=== PATIENT | female | born 1990 | race Caucasian/White ===

== ENCOUNTER 2016-06-24 19:51 | Emergency (ER) | payer OTHER ==
[~2016-06-24 19:51] MED LIST: /ESOM40CA; /INSULEV; /LAMO10TA PO; /QUET25TA; ABIL10TA PO; ABIL30TA4; AMBI5TAB PO; AMOX500C; BABY81CH; BACT800T; BUPR10TASR PO; BUSP30TA PO; CELE10TA; CELE20TA; CELE20TA OR; COLESTID; COLESTID PO; COLESTIPOL; ESKALITH; GABA600T PO; GLUC1000; GLUC1000 OR; GLUC500T; IBUP200C PO; INSULANT; KEFL500C; LAMI1TAB7 PO; LAMI25TA3 PO; LEXA1TAB2 PO; LISI5TAB; LISI5TAB OR; LITH300T2; LITH600C; LITH600C OR; LITHIUM; MELO15TA4 PO; MINI2CAP PO; NEUR300C PO; NOVOLOG100 MG/ML; ORTHO TRICYCLEN; ORTHOTRICYCLEN; PRAZ1CAP PO; PROA1AER INH; Prenatal Vitamins PO; SER; SERO200T2 PO; SEROQUEL PO; TIZA4CAP3 PO; TRAZ100T2 PO; TRAZ50TA2 PO; TRAZ50TA4 PO; TRISPRINTEC; TYLE325T5 PO; VITA200028 PO; ZOCO20TA; [UNRECOGNIZED DRUG - OTHER]; [UNRECOGNIZED DRUG - OTHER] PO; effexor xr PO; lantus insulin SQ; levemir; novolog insulin SQ
[2016-06-24] MEDS ORDERED: NORCO 5/325MG TABLET (BULK) As Ordered ONE (21:21)
--- NOTE | 2016-06-24 21:40 | EDDOCDS ---
Physician Documentation [facility] Name: Sade Thornton Age: 26 yrs Sex: Female : 1990 Arrival Date: 06/24/2016 Time: 19:51 Bed TR7 Private MD: Lenore Ramos Disposition: 06/24/16 21:10 Discharged to Home/Self Care. Impression: Dental caries. - Condition is Stable. - Discharge Instructions: Dental Pain. - Prescriptions for [place] 5- 325 mg Oral Tablet - take 1 tablet by ORAL route every 6 hours As needed MDD: 4 tabs; 20 tablet. - Medication Reconciliation, Local Pharmacy Hours form. - Follow up: Your, Dentist; When: As soon as possible; Reason: Further diagnostic work-up, Continuance of care. - Problem is an ongoing problem. - Symptoms are unchanged. Historical: - Allergies: no known allergies; - Home Meds: 1. BuSpar Oral 30 mg daily (Last dose: 06/24/2016 19:00) 2. Lamictal 100 mg Oral tab 1 tab once daily (Last dose: 06/24/2016 19:00) 3. Lexapro 20 mg Oral tab 1 tab once daily (Last dose: 06/24/2016 19:00) 4. Neurontin 600 mg Oral tab 3 times per day (Last dose: 06/24/2016 19:00) 5. Motrin 800 mg Oral tab 1 tab as needed (Last dose: 06/24/2016 19:00) - PMHx: Anxiety; Diabetes - NIDDM: controlled; GERD; Ovarian cyst; - PSHx: ; Cholecystectomy; Cyst removed from right ovary; - Social history: Smoking status: Patient uses tobacco products, current every day smoker. No barriers to communication noted, The patient speaks fluent Austrian, Speaks appropriately for age. - Family history: Not pertinent. - : The pt / caregiver states he / she is not on anticoagulants. Home medication list is obtained from the patient. - Exposure Risk Screening:: None identified. OCULAR CARE AIDE: 06/24 19:57 LMP 06/23/2016 dsf Vital Signs: 19:53 BP 161 / 72; Pulse 81; Resp 16; Temp 98.9; Pulse Ox 99% ; Weight 123.38 kg / 272.01 elp lbs; Height 5 ft. 3 in. (160.02 cm); Pain 8/; 19:53 Body Mass Index 48.18 (123.38 kg, 160.02 cm) elp MDM: 21:08 Financial registration complete. gb 21:10 [facility] Payment Agreement was scanned into [employer] and attached to record. gb 21:11 HYDROcodone-acetaminophen 4 pack- 5 mg-325 mg 1 packets PO Per package directions; ke Dispense with patient. 1 po q4h prn for pain ordered. Administered Medications: 21:35 Drug: HYDROcodone-acetaminophen 4 pack- 1 packets [hydrocodone 5 mg-acetaminophen 325 cz mg tablet (1 tabs)] {Co-Signature: ttb (Alba Whelan RN).} Route: PO; Signatures: Blake Altamirano, JOSE ELIAS RN cz Freda Ayala, Reg Reg John Schwarz, SPONSORSHIP COORDINATOR SPONSORSHIP COORDINATOR Kayleigh Jackson RN RN dsf Alba Whelan RN [email or web address] The chart was reviewed and I authenticate all verbal orders and agree with the evaluation and treatment provided.Attachments: 21:10 [facility] Payment Agreement gb MTDD
--- NOTE | 2016-06-24 21:40 | EDDOCDS ---
Nurse's Notes [facility] Name: Sade Thornton Age: 26 yrs Sex: Female : 1990 Arrival Date: 06/24/2016 Time: 19:51 Bed TR7 Private MD: Lenore Ramos Diagnosis: Dental caries Presentation: 06/24 19:54 Presenting complaint: Patient states: left jaw pain that started 1 1/2 weeks ago. Adult dsf Sepsis Screening: The patient does not have new or worsening altered mentation. Patient's respiratory rate is less than 22. Systolic blood pressure is greater than 100. Patient has a qSOFA score of 0- Negative Sepsis Screen. Suicide/Homicide risk assessment- the patient denies having any suicidal and/or homicidal ideations and does not present with any other emotional, behavioral or mental health complaints. Status: Patient is not a dining services manager or dependent. Transition of care: patient was not received from another setting of care. 19:54 Acuity: SIGIFREDO Level 5 dsf 19:54 Method Of Arrival: Walkin/Carried/Asstd dsf Triage Assessment: 19:57 General: Appears in no apparent distress, Behavior is appropriate for age, cooperative. dsf Pain: Location: left jaw Pain currently is 8 out of 10 on a pain scale. Quality of pain is described as throbbing. HIV screening NA for this visit Offered previously. EENT: Reports pain in left jaw. POLICE DISPATCHER: 19:57 LMP 06/23/2016 dsf Historical: - Allergies: no known allergies; - Home Meds: 1. BuSpar Oral 30 mg daily (Last dose: 06/24/2016 19:00) 2. Lamictal 100 mg Oral tab 1 tab once daily (Last dose: 06/24/2016 19:00) 3. Lexapro 20 mg Oral tab 1 tab once daily (Last dose: 06/24/2016 19:00) 4. Neurontin 600 mg Oral tab 3 times per day (Last dose: 06/24/2016 19:00) 5. Motrin 800 mg Oral tab 1 tab as needed (Last dose: 06/24/2016 19:00) - PMHx: Anxiety; Diabetes - NIDDM: controlled; GERD; Ovarian cyst; - PSHx: ; Cholecystectomy; Cyst removed from right ovary; - Social history: Smoking status: Patient uses tobacco products, current every day smoker. No barriers to communication noted, The patient speaks fluent German, Speaks appropriately for age. - Family history: Not pertinent. - : The pt / caregiver states he / she is not on anticoagulants. Home medication list is obtained from the patient. - Exposure Risk Screening:: None identified. Screenin:26 Screening information is obtained from the patient. Fall risk: No risks identified. cz Assistance ADL's: requires no assistance with activities of daily living. Abuse/DV Screen: The patient / caregiver reports he/she is: not in a situation that causes fear, pain or injury. Nutritional screening: No deficits noted. Advance Directives: Currently, there is no health care proxy. There is no active DNR order. There is no living will. There is no Power of Hat Body Sorter. Advance directive information has not previously been placed in an [facility] medical record. home support is adequate. Assessment: 21:26 General: alert female with stated dental pain no obvious swelling noted. Vital Signs: 19:53 BP 161 / 72; Pulse 81; Resp 16; Temp 98.9; Pulse Ox 99% ; Weight 123.38 kg; Height 5 elp ft. 3 in. (160.02 cm); Pain 8/10; 19:53 Body Mass Index 48.18 (123.38 kg, 160.02 cm) [facility] Vitals: 19:53 Log In Time: June 24, 2016 at 19:51. [facility] ED Course: 19:52 Patient visited by Adurey Rm PCA. elp 19:52 Lenore Ramos is Private Physician. elp 19:52 Patient moved to Waiting el 19:53 Patient visited by Audrey Rm PCA. elp 19:53 Patient moved to Pre RCE elp 19:55 Triage Initiated dsf 20:56 [facility]. ke 20:56 Patient visited by John Hamm FNP. ke 20:56 Patient visited by John Hamm FNP. ke 20:56 Patient moved to I1 23 [facility] 21:10 Your Dentist is Referral Physician. ke 21:10 [facility] Payment Agreement was scanned into [employer] and attached to record. gb 21:26 The patient / caregiver is instructed regarding the plan of care and ED course. cz 21:26 No IV's were initiated during this patient's visit. No procedures done that require cz assistance. 21:34 Patient moved to TR7 cz Administered Medications: 21:35 Drug: HYDROcodone-acetaminophen 4 pack- 1 packets [hydrocodone 5 mg-acetaminophen 325 cz mg tablet (1 tabs)] {Co-Signature: marko (Alba Whelan RN).} Route: PO; Order Results: There are currently no results for this order. Outcome: 21:10 Discharge ordered by Provider. ke 21:26 Discharge Assessment: Patient awake, alert and oriented x 3. No cognitive and/or cz functional deficits noted. Patient verbalized understanding of disposition instructions. patient administered narcotics - no. The following High Risk Discharge criteria are identified: None. Discharged to home ambulatory. Condition: stable. Discharge instructions given to patient, Instructed on discharge instructions, follow up and referral plans. medication usage, Demonstrated understanding of instructions, medications, Pt was receptive of discharge instructions/ teaching. Prescriptions given X 1. No special radiology studies were completed. Property :Personal belongings accompany Pt. 21:39 Patient left the ED. cz Signatures: Blake Altamirano, RN RN cz Freda Ayala, Reg Reg gb John Hamm, ROAD SIGN INSTALLER ROAD SIGN INSTALLER Kayleigh JacksonRN RN Linda NegronRN RN howard Audrey Rm, GRIP WRAPPER GRIP WRAPPER elp Alba zhu MTDD
--- NOTE | 2016-06-26 22:40 | EDDOCDS ---
Nurse's Notes [facility] Name: Sade Thornton Age: 26 yrs Sex: Female : 1990 Arrival Date: 06/24/2016 Time: 19:51 Bed TR7 Private MD: Lenore Ramos Diagnosis: Dental caries Presentation: 06/24 19:54 Presenting complaint: Patient states: left jaw pain that started 1 1/2 weeks ago. Adult dsf Sepsis Screening: The patient does not have new or worsening altered mentation. Patient's respiratory rate is less than 22. Systolic blood pressure is greater than 100. Patient has a qSOFA score of 0- Negative Sepsis Screen. Suicide/Homicide risk assessment- the patient denies having any suicidal and/or homicidal ideations and does not present with any other emotional, behavioral or mental health complaints. Status: Patient is not a office services coordinator or dependent. Transition of care: patient was not received from another setting of care. 19:54 Acuity: SIGIFREDO Level 5 dsf 19:54 Method Of Arrival: Walkin/Carried/Asstd dsf Triage Assessment: 19:57 General: Appears in no apparent distress, Behavior is appropriate for age, cooperative. dsf Pain: Location: left jaw Pain currently is 8 out of 10 on a pain scale. Quality of pain is described as throbbing. HIV screening NA for this visit Offered previously. EENT: Reports pain in left jaw. BARREL MAKER: 19:57 LMP 06/23/2016 dsf Historical: - Allergies: no known allergies; - Home Meds: 1. BuSpar Oral 30 mg daily (Last dose: 06/24/2016 19:00) 2. Lamictal 100 mg Oral tab 1 tab once daily (Last dose: 06/24/2016 19:00) 3. Lexapro 20 mg Oral tab 1 tab once daily (Last dose: 06/24/2016 19:00) 4. Neurontin 600 mg Oral tab 3 times per day (Last dose: 06/24/2016 19:00) 5. Motrin 800 mg Oral tab 1 tab as needed (Last dose: 06/24/2016 19:00) - PMHx: Anxiety; Diabetes - NIDDM: controlled; GERD; Ovarian cyst; - PSHx: ; Cholecystectomy; Cyst removed from right ovary; - Social history: Smoking status: Patient uses tobacco products, current every day smoker. No barriers to communication noted, The patient speaks fluent Kiswahili, Speaks appropriately for age. - Family history: Not pertinent. - : The pt / caregiver states he / she is not on anticoagulants. Home medication list is obtained from the patient. - Exposure Risk Screening:: None identified. Screenin:26 Screening information is obtained from the patient. Fall risk: No risks identified. cz Assistance ADL's: requires no assistance with activities of daily living. Abuse/DV Screen: The patient / caregiver reports he/she is: not in a situation that causes fear, pain or injury. Nutritional screening: No deficits noted. Advance Directives: Currently, there is no health care proxy. There is no active DNR order. There is no living will. There is no Power of Nanotechnician. Advance directive information has not previously been placed in an [facility] medical record. home support is adequate. Assessment: 21:26 General: alert female with stated dental pain no obvious swelling noted. Vital Signs: 19:53 BP 161 / 72; Pulse 81; Resp 16; Temp 98.9; Pulse Ox 99% ; Weight 123.38 kg; Height 5 elp ft. 3 in. (160.02 cm); Pain 8/10; 19:53 Body Mass Index 48.18 (123.38 kg, 160.02 cm) [facility] Vitals: 19:53 Log In Time: June 24, 2016 at 19:51. [facility] ED Course: 19:52 Patient visited by Audrey Rm PCA. elp 19:52 Lenore Ramos is Private Physician. elp 19:52 Patient moved to Waiting el 19:53 Patient visited by Audrey Rm PCA. elp 19:53 Patient moved to Pre RCE elp 19:55 Triage Initiated dsf 20:56 [facility]. ke 20:56 Patient visited by John Hamm FNP. ke 20:56 Patient visited by John Hamm FNP. ke 20:56 Patient moved to I1 [address] [facility] 21:10 Your Dentist is Referral Physician. ke 21:10 [facility] Payment Agreement was scanned into [email or web address] and attached to record. gb 21:26 The patient / caregiver is instructed regarding the plan of care and ED course. cz 21:26 No IV's were initiated during this patient's visit. No procedures done that require cz assistance. 21:34 Patient moved to TR7 06/25 12:20 T-Sheet-- Draft Copy was scanned into [email or web address] and attached to record. gb Administered Medications: 06/24 21:35 Drug: HYDROcodone-acetaminophen 4 pack- 1 packets [hydrocodone 5 mg-acetaminophen 325 cz mg tablet (1 tabs)] {Co-Signature: ttb (Alba Whelan RN).} Route: PO; Order Results: There are currently no results for this order. Outcome: 21:10 Discharge ordered by Provider. ke 21:26 Discharge Assessment: Patient awake, alert and oriented x 3. No cognitive and/or cz functional deficits noted. Patient verbalized understanding of disposition instructions. patient administered narcotics - no. The following High Risk Discharge criteria are identified: None. Discharged to home ambulatory. Condition: stable. Discharge instructions given to patient, Instructed on discharge instructions, follow up and referral plans. medication usage, Demonstrated understanding of instructions, medications, Pt was receptive of discharge instructions/ teaching. Prescriptions given X 1. No special radiology studies were completed. Property :Personal belongings accompany Pt. 21:39 Patient left the ED. cz Signatures: Blake Altamirano, RN RN Freda Funes, Reg Reg John Schwarz, STILL PHOTOGRAPHER STILL PHOTOGRAPHERKaylegih Escalona,RN RN Linda NegronRN RN [facility] Audrey Rm, SEAMAN OFFICER SEAMAN OFFICER elp Alba Whelan RN ttb Chart Complete MTDD
--- NOTE | 2016-06-26 22:40 | EDDOCDS ---
Physician Documentation [facility] Name: Sade Thornton Age: 26 yrs Sex: Female : 1990 Arrival Date: 06/24/2016 Time: 19:51 Bed TR7 Private MD: Lenore Ramos Disposition: 06/24/16 21:10 Discharged to Home/Self Care. Impression: Dental caries. - Condition is Stable. - Discharge Instructions: Dental Pain. - Prescriptions for [place] 5- 325 mg Oral Tablet - take 1 tablet by ORAL route every 6 hours As needed MDD: 4 tabs; 20 tablet. - Medication Reconciliation, Local Pharmacy Hours form. - Follow up: Your, Dentist; When: As soon as possible; Reason: Further diagnostic work-up, Continuance of care. - Problem is an ongoing problem. - Symptoms are unchanged. Historical: - Allergies: no known allergies; - Home Meds: 1. BuSpar Oral 30 mg daily (Last dose: 06/24/2016 19:00) 2. Lamictal 100 mg Oral tab 1 tab once daily (Last dose: 06/24/2016 19:00) 3. Lexapro 20 mg Oral tab 1 tab once daily (Last dose: 06/24/2016 19:00) 4. Neurontin 600 mg Oral tab 3 times per day (Last dose: 06/24/2016 19:00) 5. Motrin 800 mg Oral tab 1 tab as needed (Last dose: 06/24/2016 19:00) - PMHx: Anxiety; Diabetes - NIDDM: controlled; GERD; Ovarian cyst; - PSHx: ; Cholecystectomy; Cyst removed from right ovary; - Social history: Smoking status: Patient uses tobacco products, current every day smoker. No barriers to communication noted, The patient speaks fluent Surinamese, Speaks appropriately for age. - Family history: Not pertinent. - : The pt / caregiver states he / she is not on anticoagulants. Home medication list is obtained from the patient. - Exposure Risk Screening:: None identified. POLICYHOLDER INFORMATION CLERK: 06/24 19:57 LMP 06/23/2016 dsf Vital Signs: 19:53 BP 161 / 72; Pulse 81; Resp 16; Temp 98.9; Pulse Ox 99% ; Weight 123.38 kg / 272.01 elp lbs; Height 5 ft. 3 in. (160.02 cm); Pain 8/; 19:53 Body Mass Index 48.18 (123.38 kg, 160.02 cm) elp MDM: 21:08 Financial registration complete. 21:10 [facility] Payment Agreement was scanned into [employer] and attached to record. gb 21:11 HYDROcodone-acetaminophen 4 pack- 5 mg-325 mg 1 packets PO Per package directions; ke Dispense with patient. 1 po q4h prn for pain ordered. 06/25 12:20 T-Sheet-- Draft Copy was scanned into [employer] and attached to record. gb Administered Medications: 06/24 21:35 Drug: HYDROcodone-acetaminophen 4 pack- 1 packets [hydrocodone 5 mg-acetaminophen 325 cz mg tablet (1 tabs)] {Co-Signature: ttb (Alba Whelan RN).} Route: PO; Signatures: Blake Altamirano, JOSE ELIAS RN rFeda Funes, Reg Reg gb John Hamm, STRETCH MACHINE OPERATOR STRETCH MACHINE OPERATOR Kayleigh Jackson RN RN dsf Alba Whelan RN [email or web address] The chart was reviewed and I authenticate all verbal orders and agree with the evaluation and treatment provided.Attachments: 21:10 [facility] Payment Agreement gb 06/25 12:20 T-Sheet-- Draft Copy gb Chart Complete MTDD
--- NOTE | 2016-06-26 22:40 | EDDOCDS ---
Physician Documentation [facility] Name: Sade Thornton Age: 26 yrs Sex: Female : 1990 Arrival Date: 06/24/2016 Time: 19:51 Bed TR7 Private MD: Lenore Ramos Disposition: 06/24/16 21:10 Discharged to Home/Self Care. Impression: Dental caries. - Condition is Stable. - Discharge Instructions: Dental Pain. - Prescriptions for [place] 5- 325 mg Oral Tablet - take 1 tablet by ORAL route every 6 hours As needed MDD: 4 tabs; 20 tablet. - Medication Reconciliation, Local Pharmacy Hours form. - Follow up: Your, Dentist; When: As soon as possible; Reason: Further diagnostic work-up, Continuance of care. - Problem is an ongoing problem. - Symptoms are unchanged. Historical: - Allergies: no known allergies; - Home Meds: 1. BuSpar Oral 30 mg daily (Last dose: 06/24/2016 19:00) 2. Lamictal 100 mg Oral tab 1 tab once daily (Last dose: 06/24/2016 19:00) 3. Lexapro 20 mg Oral tab 1 tab once daily (Last dose: 06/24/2016 19:00) 4. Neurontin 600 mg Oral tab 3 times per day (Last dose: 06/24/2016 19:00) 5. Motrin 800 mg Oral tab 1 tab as needed (Last dose: 06/24/2016 19:00) - PMHx: Anxiety; Diabetes - NIDDM: controlled; GERD; Ovarian cyst; - PSHx: ; Cholecystectomy; Cyst removed from right ovary; - Social history: Smoking status: Patient uses tobacco products, current every day smoker. No barriers to communication noted, The patient speaks fluent Gambian, Speaks appropriately for age. - Family history: Not pertinent. - : The pt / caregiver states he / she is not on anticoagulants. Home medication list is obtained from the patient. - Exposure Risk Screening:: None identified. EEG TECH: 06/24 19:57 LMP 06/23/2016 dsf Vital Signs: 19:53 BP 161 / 72; Pulse 81; Resp 16; Temp 98.9; Pulse Ox 99% ; Weight 123.38 kg / 272.01 elp lbs; Height 5 ft. 3 in. (160.02 cm); Pain 8/; 19:53 Body Mass Index 48.18 (123.38 kg, 160.02 cm) elp MDM: 21:08 Financial registration complete. 21:10 [facility] Payment Agreement was scanned into [employer] and attached to record. gb 21:11 HYDROcodone-acetaminophen 4 pack- 5 mg-325 mg 1 packets PO Per package directions; ke Dispense with patient. 1 po q4h prn for pain ordered. 06/25 12:20 T-Sheet-- Draft Copy was scanned into [employer] and attached to record. gb Administered Medications: 06/24 21:35 Drug: HYDROcodone-acetaminophen 4 pack- 1 packets [hydrocodone 5 mg-acetaminophen 325 cz mg tablet (1 tabs)] {Co-Signature: ttb (Alba Whelan RN).} Route: PO; Signatures: Blake Altamirano, JOSE ELIAS RN Freda Funes, Reg Reg gb John Hamm, SKIP MINER BLASTING SKIP MINER BLASTING Kayleigh Jackson RN RN dsf Alba Whelan RN [email or web address] The chart was reviewed and I authenticate all verbal orders and agree with the evaluation and treatment provided.Attachments: 21:10 [facility] Payment Agreement gb 06/25 12:20 T-Sheet-- Draft Copy gb Chart Complete MTDD
== END 2016-06-24 21:39 | disposition home or self-care (01) ==
LOC: M ED 19:51
DX: K02.9 Dental caries, unspecified (principal); F41.9 Anxiety disorder, unspecified; E11.9 Type 2 diabetes mellitus without complications; K21.9 Gastro-esophageal reflux disease without esophagitis; N83.209 Unspecified ovarian cyst, unspecified side; F17.210 Nicotine dependence, cigarettes, uncomplicated; Z79.899 Other long term (current) drug therapy; Z79.1 Long term (current) use of non-steroidal anti-inflammatories (NSAID)

== ENCOUNTER 2016-09-02 18:29 | Emergency (ER) | payer OTHER ==
[~2016-09-02] VITALS: Ht 160 cm; Wt 128.4 kg
[2016-09-02 18:29] VITALS: BP 129/71
[2016-09-02] MEDS ORDERED: VALA500T PO (18:39)
[2016-09-02] MEDS ORDERED: METF500T PO (18:39)
[2016-09-02] MEDS ORDERED: ONDANSETRON 4 MG ORAL DISINTEGRATING TAB (S0181) PO ONE (21:00)
[2016-09-02] MEDS ORDERED: BACTRIM 160MG/800MG DS TAB PO ONE (21:00)
[2016-09-02] MEDS ORDERED: BACT800T5 PO (21:01)
[2016-09-02] MEDS ORDERED: ZOFR4TAB3 PO (21:01)
== END 2016-09-02 21:17 | disposition home or self-care (01) ==
LOC: M ED 20:17
DX: N30.90 Cystitis, unspecified without hematuria (principal); J45.909 Unspecified asthma, uncomplicated; Z87.440 Personal history of urinary (tract) infections; Z87.442 Personal history of urinary calculi; Z79.899 Other long term (current) drug therapy; F17.210 Nicotine dependence, cigarettes, uncomplicated

== ENCOUNTER 2016-09-06 19:38 | Emergency (ER) | payer OTHER ==
[~2016-09-06] VITALS: Ht 160 cm; Wt 128.4 kg
[~2016-09-06 19:38] MED LIST changes: +BACT800T5 PO; +METF500T PO; +VALA500T PO; +ZOFR4TAB3 PO
[2016-09-06] MEDS ORDERED: ONDANSETRON 4MG/2ML VIAL (J2405) IV ONE (20:30)
[2016-09-06] MEDS ORDERED: NS 1,000 ML IV ONE (20:30)
[2016-09-06] MEDS ORDERED: KETOROLAC 30 MG/ML VIAL (J1885) IV ONE (20:30)
[2016-09-06 20:52] LABS: BASO % 0.4 % (0.0-1.0); EOS # 0.5 K/mm3 (0.0-0.50); EOS % 5.7 % (0.0-3.0); LARGE UNSTAINED CELL # 0.1 K/mm3 (0.0-0.4); LARGE UNSTAINED CELL % 0.9 % (0.0-4.0); LYMPH # 2.8 K/mm3 (1.5-6.5); LYMPH % 29.3 % (24.0-44.0); MEAN CORPUSCULAR HEMOGLOBIN 29.3 pg (27.0-33.0); MEAN CORPUSCULAR HGB CONC 31.9 g/dl (32.0-36.5); MONO # 0.4 K/mm3 (0.0-0.8); MONO % 4.8 % (0.0-5.0); NEUTROPHILS # 5.4 K/mm3 (1.8-7.7); NEUTROPHILS % 58.9 % (36.0-66.0); PLATELET COUNT, AUTOMATED 203 k/mm3 (150-450); RED CELL DISTRIBUTION WIDTH 12.5 % (11.5-14.5); WHITE BLOOD COUNT 9.1 K/mm3 (4.0-10.0)
[2016-09-06 21:07] LABS: CONTROL LINE HCG INT CTR LINE PRESENT
[2016-09-06 21:20] LABS: ALBUMIN 3.4 GM/DL (3.2-5.2); ALBUMIN/GLOBULIN RATIO 0.97 (1.00-1.93); ALKALINE PHOSPHATASE 93 U/L (45-117); ALT/SGPT 41 U/L (12-78); ANION GAP 5 MEQ/L (8-16); AST/SGOT 14 U/L (15-37); BILIRUBIN,DIRECT < 0.1 MG/DL (0.0-0.2); BILIRUBIN,TOTAL 0.2 MG/DL (0.2-1.0); BLOOD UREA NITROGEN 14 MG/DL (7-18); CALCIUM LEVEL 8.3 MG/DL (8.5-10.1); CARBON DIOXIDE LEVEL 28 MEQ/L (21-32); CHLORIDE LEVEL 106 MEQ/L (98-107); CREATININE FOR GFR 0.83 MG/DL (0.55-1.02); GLOMERULAR FILTRATION RATE > 60.0 (>60); GLUCOSE, FASTING 120 MG/DL (70-105); POTASSIUM SERUM 4.2 MEQ/L (3.5-5.1); SODIUM LEVEL 139 MEQ/L (136-145); TOTAL PROTEIN 6.9 GM/DL (6.4-8.2)
[2016-09-06] MEDS ORDERED: MORPHINE 2 MG/ML 1ML SYRINGE IV ONE (22:15)
--- NOTE | 2016-09-06 22:40 | REPUSA ---
CLINICAL HISTORY: Abdominal pain. TECHNIQUE: Multiple axial, sagittal and coronal CT images were obtained through the abdomen and pelvi s without administration of oral or IV contrast material. COMMENTS: The liver is of uniform attenuation without mass or defect. There is no intra or extrahepatic biliary ductal dilatation. The spleen is normal. The gallbladder is surgically absent. The pancreas is of no rmal contour and attenuation characteristics. There is no evidence of adrenal mass. The kidneys are normal in size, shape and configuration. No renal or ureteral calculi are identified. There is no hydroureter or hydronephrosis. There is no evidence for appendicitis. There is no bowel wall thickening. No evidence for small or la rge bowel obstruction. There is no evidence of abdominal ascites or lymphadenopathy. There is no evidence of intrinsic or extrinsic bladder mass. There is no pelvic ascites or lymphadeno petey. The uterus is bulky suggesting myomatous change. The ovaries are WNL. Images of the lung bases show no evidence of pleural or parenchymal mass. There are no pleural effusi ons. The bony structures are free of lytic or blastic lesions. IMPRESSION: The uterus is bulky suggesting myomatous change. No acute abdominal or pelvic pathology. Thank you for your kind referral of this patient.
[2016-09-06] MEDS ORDERED: NAPR500T PO (23:14)
[2016-09-06 23:27] VITALS: BP 123/55
--- NOTE | 2016-09-07 17:33 | ED PDOC ---
Post-Departure Follow-Up bhumika tejada faxed formal report of ct abd/p for fu nelig Viki Mann MD Sep 07, 2016 17:33
== END 2016-09-06 23:31 | disposition home or self-care (01) ==
LOC: M ED 20:22
DX: D25.9 Leiomyoma of uterus, unspecified (principal); E11.9 Type 2 diabetes mellitus without complications; J45.909 Unspecified asthma, uncomplicated; F17.210 Nicotine dependence, cigarettes, uncomplicated; Z79.899 Other long term (current) drug therapy; Z79.84 Long term (current) use of oral hypoglycemic drugs
CPT/HCPCS: 74176; 80048; 80076; 81001; 83690; 84703; 85025; 87086; 96361; 96374; 96375; 99282; J1885; J2405

== ENCOUNTER 2016-10-27 22:29 | Emergency (ER) | payer OTHER ==
[~2016-10-27] VITALS: Ht 160 cm; Wt 124.7 kg
[2016-10-27 22:29] VITALS: BP 128/64
[~2016-10-27 22:29] MED LIST changes: +NAPR500T PO
[2016-10-27] MEDS ORDERED: CYMB1CAP4 PO (22:48)
[2016-10-27] MEDS ORDERED: NEUR600T PO (22:48)
[2016-10-27] MEDS ORDERED: MINI1CAP PO (22:48)
[2016-10-28 01:58] LABS: CALCIUM OXALATE CRYSTALS SMALL
[2016-10-28 02:02] LABS: CONTROL LINE UCG INT CTR LINE PRESENT
== END 2016-10-28 02:00 | disposition left against medical advice (07) ==
LOC: M ED 23:50
DX: R11.0 Nausea (principal); Z53.21 Procedure and treatment not carried out due to patient leaving prior to being seen by health care provider

== ENCOUNTER 2016-12-14 21:13 | Emergency (ER) | payer OTHER ==
[~2016-12-14] VITALS: Ht 160 cm; Wt 122.4 kg
[~2016-12-14 21:13] MED LIST changes: +CYMB1CAP4 PO; -IBUP200C PO; +IBUP200C10 PO; -METF500T PO; +METF500T13 PO; +MINI1CAP PO; +NEUR600T PO; -PROA1AER INH; +PROAAER10 INH; +TRAZ50TA11 PO; -TRAZ50TA4 PO; -VALA500T PO; +VALA500T2 PO
[2016-12-14] MEDS ORDERED: IBUP-1114 PO (21:28)
[2016-12-15 01:17] LABS: CALCIUM OXALATE CRYSTALS SMALL
[2016-12-15 01:27] LABS: BASO # 0.1 K/mm3 (0.0-0.2); BASO % 0.7 % (0.0-1.0); EOS # 0.3 K/mm3 (0.0-0.50); EOS % 3.7 % (0.0-3.0); LARGE UNSTAINED CELL # 0.1 K/mm3 (0.0-0.4); LARGE UNSTAINED CELL % 1.6 % (0.0-4.0); LYMPH # 2.8 K/mm3 (1.5-6.5); MEAN CORPUSCULAR HEMOGLOBIN 30.6 pg (27.0-33.0); MONO # 0.4 K/mm3 (0.0-0.8); MONO % 4.4 % (0.0-5.0); NEUTROPHILS # 4.7 K/mm3 (1.8-7.7); NEUTROPHILS % 56.6 % (36.0-66.0); PLATELET COUNT, AUTOMATED 239 k/mm3 (150-450); RED CELL DISTRIBUTION WIDTH 12.6 % (11.5-14.5); WHITE BLOOD COUNT 8.4 K/mm3 (4.0-10.0)
[2016-12-15 01:41] LABS: CONTROL LINE HCG INT CTR LINE PRESENT
[2016-12-15 01:51] LABS: ALBUMIN 3.7 GM/DL (3.2-5.2); ALBUMIN/GLOBULIN RATIO 0.93 (1.00-1.93); ALKALINE PHOSPHATASE 90 U/L (45-117); ALT/SGPT 39 U/L (12-78); ANION GAP 10 MEQ/L (8-16); AST/SGOT 15 U/L (15-37); BILIRUBIN,DIRECT 0.1 MG/DL (0.0-0.2); BILIRUBIN,TOTAL 0.5 MG/DL (0.2-1.0); BLOOD UREA NITROGEN 17 MG/DL (7-18); CALCIUM LEVEL 9.8 MG/DL (8.5-10.1); CARBON DIOXIDE LEVEL 25 MEQ/L (21-32); CHLORIDE LEVEL 108 MEQ/L (98-107); CREATININE FOR GFR 0.72 MG/DL (0.55-1.02); GLOMERULAR FILTRATION RATE > 60.0 (>60); GLUCOSE, FASTING 94 MG/DL (70-105); POTASSIUM SERUM 3.7 MEQ/L (3.5-5.1); SODIUM LEVEL 143 MEQ/L (136-145); TOTAL PROTEIN 7.7 GM/DL (6.4-8.2)
[2016-12-15] MEDS ORDERED: LIDO5DIS41 TD (02:00)
[2016-12-15] MEDS ORDERED: KETOROLAC 60 MG/2 ML VIAL (J1885) IM ONE (02:00)
[2016-12-15] MEDS ORDERED: ONDANSETRON 4 MG ORAL DISINTEGRATING TAB (S0181) PO ONE (02:00)
[2016-12-15 02:41] VITALS: BP 138/77
[2017-03-24] MEDS ORDERED: NORCOTAB PO (21:33)
[2017-03-24] MEDS ORDERED: CLEO300C2 PO (21:33)
[2017-03-24] MEDS ORDERED: COLA100C5 PO (21:33)
[2017-03-27] MEDS ORDERED: AUGM500T34 PO (04:26)
== END 2016-12-15 02:46 | disposition home or self-care (01) ==
LOC: M ED 21:13
DX: G89.29 Other chronic pain (principal); M54.9 Dorsalgia, unspecified; R11.0 Nausea; J45.909 Unspecified asthma, uncomplicated; E66.9 Obesity, unspecified; E11.9 Type 2 diabetes mellitus without complications; F33.8 Other recurrent depressive disorders; Z79.84 Long term (current) use of oral hypoglycemic drugs; Z79.899 Other long term (current) drug therapy
CPT/HCPCS: 36415; 80048; 80076; 81001; 83690; 84703; 85025; 87086; 96372; 99283; J1885

== ENCOUNTER → 2016-12-26 | Outpatient (CLI) | payer OTHER ==
[~2016-12-26] MED LIST changes: +AUGM500T34 PO; +CLEO300C2 PO; +COLA100C5 PO; +IBUP-1114 PO; +LIDO5DIS41 TD; +NORCOTAB PO
--- NOTE | 2016-12-26 15:29 | REP ---
MR LUMBAR SPINE WITHOUT CONTRAST: HISTORY: Back pain. COMPARISON: 09/15/2014 Decreased signal intensity on T2-weighted images is present in the L5-S1 intervertebral disc. This represents disc degeneration. There is no disc bulge or herniation at the L1-2 through L3-4 levels. The nerves exit the neural, foramina without compression. A diffuse disc bulge is present at the L4-5 level. There is no thecal sac or nerve compression. The L4 nerves exit the neural foramina without compression. A diffuse disc bulge is present at the L5-S1 level. This abuts the S1 nerves. There is no thecal sac compression. There is hypertrophy of the posterior articulating facets. The L5 nerves exit the neural foramina without compression. The conus medullaris is normal in appearance terminating at the level of the T12-L1 intervertebral disc. A prominent epidural and paravertebral venous plexus is present throughout the lumbar spinal canal. Normal signal intensity is present in the lumbar vertebral bodies. IMPRESSION: 1. Diffuse disc bulge at the L4-5 level without thecal sac or nerve compression. 2. Diffuse disc bulge at the L5-S1 level. This abuts the S1 nerves. There is no significant change compared to the previous study. Signed by Chadwick Conley MD 12/26/2016 04:10 P
== END ==
LOC: M RAD 13:12
PROVIDERS: ATTEND Nurse Practitioner Adult Health
DX: M54.16 Radiculopathy, lumbar region (principal); R10.9 Unspecified abdominal pain; M25.552 Pain in left hip

== ENCOUNTER 2017-06-10 16:23 | Emergency (ER) | payer OTHER ==
[2017-06-10 19:34] LABS: CONTROL LINE UCG INT CTR LINE PRESENT; URINE PREG TEST NEGATIVE (NEGATIVE)
[2017-06-10 19:41] LABS: CALCIUM OXALATE CRYSTALS RFX LARGE; KETONE, URINE AUTO RFX TRACE mg/dL (NEGATIVE); LEUKOCYTE ESTERASE UR AUTO RFX TRACE (NEGATIVE); MUCUS, URINE RFX MODERATE (NEGATIVE); NITRITE, URINE AUTO RFX NEGATIVE (NEGATIVE); RBC, URINE AUTO RFX 11 /HPF (0-3); SPECIFIC GRAVITY UR AUTO RFX 1.028 (1.002-1.035); SQUAM EPITHELIAL CELL UR AURFX 14 /HPF (0-6); WBC, URINE AUTO RFX 28 /HPF (0-3)
[2017-06-10 20:09] LABS: BASO # 0.1 10^3/uL (0.0-0.2); BASO % 0.5 % (0.0-1.0); EOS # 0.4 10^3/uL (0.0-0.50); EOS % 3.2 % (0.0-3.0); HEMATOCRIT 43.3 % (36.0-47.0); HEMOGLOBIN 14.5 g/dl (12.0-16.0); IMMATURE GRANULOCYTE % 0.2 % (0-0); LYMPH # 3.7 10^3/uL (1.5-6.5); LYMPH % 28.5 % (24.0-44.0); MEAN CORPUSCULAR HEMOGLOBIN 31.2 pg (27.0-33.0); MEAN CORPUSCULAR HGB CONC 33.5 g/dl (32.0-36.5); MEAN CORPUSCULAR VOLUME 93.1 fl (80.0-96.0); MONO # 0.7 10^3/uL (0.0-0.8); MONO % 5.5 % (0.0-5.0); NEUTROPHILS # 8.1 10^3/uL (1.8-7.7); NEUTROPHILS % 62.1 % (36.0-66.0); PLATELET COUNT, AUTOMATED 219 10^3/uL (150-450); RED BLOOD COUNT 4.65 10^6/uL (4.00-5.40); RED CELL DISTRIBUTION WIDTH 13.7 % (11.5-14.5); WHITE BLOOD COUNT 13.1 10^3/uL (4.0-10.0)
[2017-06-10 20:30] LABS: CONTROL LINE HCG INT CTR LINE PRESENT; HCG, SERUM QUALITATIVE NEGATIVE (NEGATIVE)
[2017-06-10 21:02] LABS: ANION GAP 7 MEQ/L (8-16); BLOOD UREA NITROGEN 13 MG/DL (7-18); CALCIUM LEVEL 8.9 MG/DL (8.5-10.1); CARBON DIOXIDE LEVEL 26 MEQ/L (21-32); CHLORIDE LEVEL 107 MEQ/L (98-107); CREATININE FOR GFR 0.74 MG/DL (0.55-1.02); GLOMERULAR FILTRATION RATE > 60.0 (>60); GLUCOSE, FASTING 97 MG/DL (70-105); POTASSIUM SERUM 4.3 MEQ/L (3.5-5.1); SODIUM LEVEL 140 MEQ/L (136-145)
== END 2017-06-10 22:40 | disposition home or self-care (01) ==
LOC: M ED 16:23
DX: N83.201 Unspecified ovarian cyst, right side (principal); E11.9 Type 2 diabetes mellitus without complications; J45.909 Unspecified asthma, uncomplicated; F41.9 Anxiety disorder, unspecified; Z87.442 Personal history of urinary calculi; F17.210 Nicotine dependence, cigarettes, uncomplicated
CPT/HCPCS: 76856

== ENCOUNTER 2018-10-25 22:36 | Emergency (ER) | payer OTHER ==
[~2018-10-25] VITALS: Ht 160 cm; Wt 116.4 kg
[2018-10-25 22:36] VITALS: BP 178/86
[~2018-10-25 22:36] MED LIST changes: -/ESOM40CA; -/INSULEV; -/LAMO10TA PO; -/QUET25TA; -GABA600T PO; +GABA600T4 PO; +HYDR-3715 PO; -IBUP200C10 PO; +IBUP200C25 PO; +LEVE0.01; +MELO15TA28 PO; -MELO15TA4 PO; +NAPR-837 PO; -NAPR500T PO; +NEXI1CAP3; -NORCOTAB PO; +PERC5TAB12 PO; +SERO1TAB3; +TIZA4CAP PO; -TIZA4CAP3 PO; +TRAZ-252 PO; -TRAZ50TA11 PO; -VALA500T2 PO; +VALA500T5 PO; +ZOFR4TAB14 PO; -ZOFR4TAB3 PO
[2018-10-25] MEDS ORDERED: PERCOCET 5MG/325MG TAB PO ONE (23:15)
[2018-10-25] MEDS ORDERED: LIDOCAINE 2% W/EPIN INJ 20ML **PRES FREE INJ ONE (23:15)
[2018-10-26] MEDS ORDERED: BACTRIM 160MG/800MG DS TAB PO ONE
[2018-10-26] MEDS ORDERED: BACT800T5 PO (00:03)
[2018-10-26] MEDS ORDERED: OXYCODONE/APAP 5MG/325MG(BULK FOR ED) 1 TABLET PO ONE (00:15)
== END 2018-10-26 00:27 | disposition home or self-care (01) ==
LOC: M ED 22:36
DX: L02.31 Cutaneous abscess of buttock (principal); L03.317 Cellulitis of buttock; E11.9 Type 2 diabetes mellitus without complications; J45.909 Unspecified asthma, uncomplicated

== ENCOUNTER 2020-02-19 14:48 | Emergency (ER) | payer OTHER ==
[~2020-02-19] VITALS: Ht 160 cm; Wt 130.9 kg
[2020-02-19 15:00] VITALS: BP 155/96
[2020-02-19] MEDS ORDERED: VENL75CA47 (15:14)
[2020-02-19] MEDS ORDERED: PRED20TA (15:14)
[2020-02-19] MEDS ORDERED: PROP10TA56 (15:14)
[2020-02-19] MEDS ORDERED: PRAZ1CAP (15:14)
[2020-02-19] MEDS ORDERED: ALBU8.5H (15:14)
[2020-02-19] MEDS ORDERED: COUG30LI4 (15:14)
[2020-02-19] MEDS ORDERED: ACETAMINOPHEN 325 MG TAB PO ONE (15:15)
[2020-02-19] MEDS ORDERED: ACETAMINOPHEN 325 MG TAB As Ordered ONE (15:29)
== END 2020-02-19 15:33 | disposition home or self-care (01) ==
LOC: M ED 14:48 → EDBD 14:48 → M ED 15:33
DX: B34.9 Viral infection, unspecified (principal); R50.9 Fever, unspecified; E11.9 Type 2 diabetes mellitus without complications; J45.909 Unspecified asthma, uncomplicated; Z79.899 Other long term (current) drug therapy
CPT/HCPCS: 99284; U0003

== ENCOUNTER → 2020-04-04 | Outpatient (REF) | payer OTHER ==
[~2020-04-04] MED LIST changes: +ALBU8.5H; +COUG30LI4; +PRAZ1CAP; +PRED20TA; +PROP10TA56; +VENL75CA47
[2020-04-04 12:57] LABS: ALBUMIN 3.5 GM/DL (3.2-5.2); ALT/SGPT 1290 U/L (12-78); BILIRUBIN,TOTAL 0.8 MG/DL (0.2-1.0); BLOOD UREA NITROGEN 10 MG/DL (7-18); CALCIUM LEVEL 8.8 MG/DL (8.5-10.1); CARBON DIOXIDE LEVEL 26 MEQ/L (21-32); CHLORIDE LEVEL 105 MEQ/L (98-107); CHOLESTEROL LEVEL 150 MG/DL (<200); CREATININE FOR GFR 0.73 MG/DL (0.55-1.30); FREE T4 1.52 NG/DL (0.76-1.46); GLOMERULAR FILTRATION RATE > 60.0 (>60); GLUCOSE, FASTING 201 MG/DL (70-100); HDL CHOLESTEROL 53 MG/DL (>40); LDL CHOLESTEROL 84 MG/DL (<100); NON-HDL-C 97 MG/DL; POTASSIUM SERUM 4.3 MEQ/L (3.5-5.1); SODIUM LEVEL 137 MEQ/L (136-145); TOTAL PROTEIN 7.3 GM/DL (6.4-8.2); TRIGLYCERIDES LEVEL 67 MG/DL (<150)
[2020-04-04 13:07] LABS: HEMOGLOBIN A1c 6.4 %
== END ==
LOC: M LAB REF 11:31
PROVIDERS: ATTEND Family Medicine Addiction Medicine
DX: E11.9 Type 2 diabetes mellitus without complications (principal)

== ENCOUNTER → 2020-04-23 | Outpatient (REF) | payer OTHER | LOC: M LAB REF 11:55 | PROVIDERS: ATTEND Family Medicine Addiction Medicine | DX: R35.0 Frequency of micturition (principal) ==

== ENCOUNTER 2020-06-06 15:30 | Emergency (ER) | payer OTHER ==
[~2020-06-06] VITALS: Ht 160 cm; Wt 121.9 kg
--- OUTSIDE RECORDS SUMMARY | 2020-06-06 15:37 | CCD ---
Author Author Sade Lozada Organization Unknown Address [address] [place] [address] Phone Care Team Providers Care Bottle Carrier Name Role Phone Kierra Rene PCP Allergies, Adverse Reactions, Alerts No Data in Section Problem List Concept Problem Description Status Start Date Created Date Resolv ed Date Snomed Code F43.10 Posttraumatic Stress Disorde r (includes Posttraumatic Stress Disorder for Children 6 Years and Younger) Active 04/27/2020 F17.200 Tobacco Use Disorder, Moderate Active 0 F15.20 Stimulant Use Disorder, Severe: Other or unspecified s timulant Active 04/27/2020 F12.20 Cannabis Use Disorder, Moderate Active 04/27/20 20 Medications Rx Norm Medication Route Route Concept Start Date Stop Date Dosage Jeff quency Duration Formula Strength Dosage Form Dosage Form Code Dosage Description Medication Id Account Npid Author First Name Author Last Name Taxonomy Code Taxonomy Desc Phone Number [id number] prazosin by mouth [id number] 02/17/2020 05/17/2020 at bedtime 30 1 mg capsule 29774 605075 [id number] Rene Lozada [id number] Nurse Pr actitioner [id number] [phone] venlafaxine by mouth [id number] 02/17/2020 05/17/2020 once a day 30 75 mg capsule,extended release 24hr 37829 609917 [id number] Rene Lozada [id number] Nurse Practitioner [id number] 480698 propranolol by mouth [id number] 02/17/2020 05/17/2020 twice a day 30 10 mg tablet as needed 05823 659503 [id number] Rene Lozada [id number] Nurse Practitioner [id number] Social History Social History Element Description Concept Effective Date Smoking Status Current every day smoker [id number] 3335512 4 Immunizations No Data in Section Vital Signs Encounter Date Height Ins Weight Lbs Bmi Bp Systolic Bp Diastoli c Oxygen Saturation Respiration Rate Pulse Rate Body Temp Head Circumference Heigh t Lying 04/27/2020 0.00 0.00 0.00 0 0 0.00 0 0 0.00 0.0 0.0 0 Procedures Date Concept Id Description Targeted Site Concept Targeted Site Concept Type 04/27/2020 19197-62 [facility] Telemed E/M Lvl 3--Est pt CPT Patient has no history of implantable de vices Encounters Encounter Start Date End Date Encounter Type Description Diagnosis Di agnosis Desc Location Author First Name Author Last Name Npid Taxonomy Cod e Taxonomy Desc Phone Number Location Addr1 Location Addr2 Location [facility] Location Sta te Location Zip [id number] 04/27/2020 04/27/2020 32521-22 MHC Telemed E/M Lvl 3--Est p t F43.10 Post- traumatic stress disorder, unspecified [facility] [id number] Nurse Practitioner [id number] [address] [place] [address] Plan of Treatment No Data in Section Lab Results No Data in Section Instructions No Data in Section Functional Cognitive Status No Data in Section Insurance Providers Insurance Id Policy Effective Date Policy Thru Date [employer] N jessica [id number] 2016 [employer] Managed Manuel maher
--- OUTSIDE RECORDS SUMMARY | 2020-06-06 15:37 | CCD ---
Author Author Sade Rendon Organization Unknown Address [address] [place] [address] Phone Care Team Providers Care Paste Mixing Supervisor Name Role Phone Justice Kathe PCP Allergies, Adverse Reactions, Alerts No Data in Section Problem List Concept Problem Description Status Start Date Created Date Resolv ed Date Snomed Code F43.10 Posttraumatic Stress Disorde r (includes Posttraumatic Stress Disorder for Children 6 Years and Younger) Active 04/03/2020 F17.200 Tobacco Use Disorder, Moderate Active 0 F15.20 Stimulant Use Disorder, Severe: Other or unspecified s timulant Active 04/03/2020 F12.20 Cannabis Use Disorder, Moderate Active 04/03/20 20 Medications Rx Norm Medication Route Route Concept Start Date Stop Date Dosage Jeff quency Duration Formula Strength Dosage Form Dosage Form Code Dosage Description Medication Id Account Npid Author First Name Author Last Name Taxonomy Code Taxonomy Desc Phone Number [id number] prazosin by mouth [id number] 02/17/2020 05/17/2020 at bedtime 30 1 mg capsule 12134 [id number] [id number] Rene Lozada [id number] Nurse Pr actitioner [phone] 918414 venlafaxine by mouth [id number] 02/17/2020 05/17/2020 once a day 30 75 mg capsule,extended release 24hr 93728 410304 [id number] Rene Lozada [id number] Nurse Practitioner [phone] 250524 propranolol by mouth [id number] 02/17/2020 05/17/2020 twice a day 30 10 mg tablet as needed 74215 876666 [id number] Rene Lozada [id number] Nurse Practitioner [id number] Social History Social History Element Description Concept Effective Date Smoking Status Current every day smoker [id number] 0351859 0 Immunizations No Data in Section Vital Signs No Data in Section Procedures Date Concept Id Description Targeted Site Concept Targeted Site Concept Type 04/02/2020 90626 Extended Individual Psychotherapy - 45 min CPT Patient has no history of implantable de vices Encounters Encounter Start Date End Date Encounter Type Description Diagnosis Di agnosis Desc Location Author First Name Author Last Name Npid Taxonomy Cod e Taxonomy Desc Phone Number Location Addr1 Location Addr2 Location [facility] Location [facility] te Location Zip [id number] 04/02/2020 04/02/2020 98681 Extended Individual Psych otherapy - 45 min F43.10 Post-traumatic stress disorder, unspecified [facility] Justice Archuleta [id number] [id number] It Instructor [phone] [address] [place] [address] Plan of Treatment No Data in Section Lab Results No Data in Section Instructions No Data in Section Insurance Providers Insurance Id Policy Effective Date Policy Thru Date [employer] N jessica [id number] 2016 [employer] Managed Manuel maher
--- OUTSIDE RECORDS SUMMARY | 2020-06-06 15:37 | CCD ---
Author Author Sade Rendon Organization Unknown Address [address] [place] [address] Phone Care Team Providers Care Marketing Mgr Name Role Phone Justice Kathe PCP Allergies, Adverse Reactions, Alerts No Data in Section Problem List Concept Problem Description Status Start Date Created Date Resolv ed Date Snomed Code F43.10 Posttraumatic Stress Disorde r (includes Posttraumatic Stress Disorder for Children 6 Years and Younger) Active 04/16/2020 F17.200 Tobacco Use Disorder, Moderate Active 0 F15.20 Stimulant Use Disorder, Severe: Other or unspecified s timulant Active 04/16/2020 F12.20 Cannabis Use Disorder, Moderate Active 04/16/20 20 Medications Rx Norm Medication Route Route Concept Start Date Stop Date Dosage Jeff quency Duration Formula Strength Dosage Form Dosage Form Code Dosage Description Medication Id Account Npid Author First Name Author Last Name Taxonomy Code Taxonomy Desc Phone Number [id number] prazosin by mouth [id number] 02/17/2020 05/17/2020 at bedtime 30 1 mg capsule 72990 [id number] [id number] Rene Lozada [id number] Nurse Pr actitioner [id number] 906866 venlafaxine by mouth [id number] 02/17/2020 05/17/2020 once a day 30 75 mg capsule,extended release 24hr 05991 911252 [id number] Rene Lozada [id number] Nurse Practitioner [id number] 752772 propranolol by mouth [id number] 02/17/2020 05/17/2020 twice a day 30 10 mg tablet as needed 65976 872009 [id number] Rene Lozada [id number] Nurse Practitioner [id number] Social History Social History Element Description Concept Effective Date Smoking Status Current every day smoker [id number] 7258951 3 Immunizations No Data in Section Vital Signs No Data in Section Procedures Date Concept Id Description Targeted Site Concept Targeted Site Concept Type 04/16/2020 27208-29 [id number]"Psychotherapy CPT Patient has no history of implantable de vices Encounters Encounter Start Date End Date Encounter Type Description Diagnosis Di agnosis Desc Location Author First Name Author Last Name Npid Taxonomy Cod e Taxonomy Desc Phone Number Location Addr1 Location Addr2 Location [facility] Location Sta te Location [facility] [id number] 04/16/2020 04/16/2020 40894-00 [id number]"Psychothera py F43.10 Post-traumatic stress disorder, unspecified [facility] Justice Archuleta [phone] Salesperson [employer] [id number] [address] [place] [address] Plan of Treatment No Data in Section Lab Results No Data in Section Instructions No Data in Section Insurance Providers Insurance Id Policy Effective Date Policy Thru Date [employer] David lopez [id number] 2016 [employer] Managed Manuel maher
--- OUTSIDE RECORDS SUMMARY | 2020-06-06 15:37 | CCD ---
Author Author Sade Rendon Organization Unknown Address [address] [address] Phone Care Team Providers Care Music Writer Name Role Phone Justice Kathe PCP Allergies, Adverse Reactions, Alerts No Data in Section Problem List Concept Problem Description Status Start Date Created Date Resolv ed Date Snomed Code F43.10 Posttraumatic Stress Disorde r (includes Posttraumatic Stress Disorder for Children 6 Years and Younger) Active 04/30/2020 F17.200 Tobacco Use Disorder, Moderate Active 0 F15.20 Stimulant Use Disorder, Severe: Other or unspecified s timulant Active 04/30/2020 F12.20 Cannabis Use Disorder, Moderate Active 04/30/20 20 Medications Rx Norm Medication Route Route Concept Start Date Stop Date Dosage Jeff quency Duration Formula Strength Dosage Form Dosage Form Code Dosage Description Medication Id Account Npid Author First Name Author Last Name Taxonomy Code Taxonomy Desc Phone Number [id number] prazosin by mouth [id number] 02/17/2020 05/17/2020 at bedtime 30 1 mg capsule 66465 610788 [id number] Rene Lozada [id number] Nurse Pr actitioner [phone] 442818 venlafaxine by mouth [id number] 02/17/2020 05/17/2020 once a day 30 75 mg capsule,extended release 24hr 68568 966123 [id number] Rene Lozada [id number] Nurse Practitioner [phone] 594783 propranolol by mouth [id number] 02/17/2020 05/17/2020 twice a day 30 10 mg tablet as needed 44218 126389 [id number] Rene Lozada [id number] Nurse Practitioner [id number] Social History Social History Element Description Concept Effective Date Smoking Status Current every day smoker [id number] 1156582 7 Immunizations No Data in Section Vital Signs No Data in Section Procedures Date Concept Id Description Targeted Site Concept Targeted Site Concept Type 04/30/2020 50825 Extended Individual Psychotherapy - 45 min CPT Patient has no history of implantable de vices Encounters Encounter Start Date End Date Encounter Type Description Diagnosis Di agnosis Desc Location Author First Name Author Last Name Npid Taxonomy Cod e Taxonomy Desc Phone Number Location Addr1 Location Addr2 Location [facility] Location Sta te Location [facility] [id number] 04/30/2020 04/30/2020 77750 Extended Individual Psych otherapy - 45 min F43.10 Post-traumatic stress disorder, unspecified [facility] Justice Archuleta [phone] [id number] Junior Web Designer [phone] [address] [address] Plan of Treatment No Data in Section Lab Results No Data in Section Instructions No Data in Section Insurance Providers Insurance Id Policy Effective Date Policy Thru Date [employer] N jessica [id number] 2016 [employer] Managed Manuel maher
--- OUTSIDE RECORDS SUMMARY | 2020-06-06 15:37 | CCD ---
Author Author Sade Lozada Organization Unknown Address [address] [address] Phone Care Team Providers Care Burial Vault Setter Name Role Phone LozadaLupeRene PCP Allergies, Adverse Reactions, Alerts No Data in Section Problem List Concept Problem Description Status Start Date Created Date Resolv ed Date Snomed Code F43.10 Posttraumatic Stress Disorde r (includes Posttraumatic Stress Disorder for Children 6 Years and Younger) Active 05/10/2020 F17.200 Tobacco Use Disorder, Moderate Active 0 F15.20 Stimulant Use Disorder, Severe: Other or unspecified s timulant Active 05/10/2020 F12.20 Cannabis Use Disorder, Moderate Active 05/10/20 20 Medications Rx Norm Medication Route Route Concept Start Date Stop Date Dosage Jeff quency Duration Formula Strength Dosage Form Dosage Form Code Dosage Description Medication Id Account Npid Author First Name Author Last Name Taxonomy Code Taxonomy Desc Phone Number [id number] prazosin by mouth [id number] 02/17/2020 05/17/2020 at bedtime 30 1 mg capsule 86160 [id number] [phone] Rene Lozada [id number] Nurse Pr actitioner [phone] 689862 venlafaxine by mouth [id number] 02/17/2020 05/17/2020 once a day 30 75 mg capsule,extended release 24hr 53109 574210 [id number] Rene Lozada [id number] Nurse Practitioner [phone] 936759 propranolol by mouth [id number] 02/17/2020 05/17/2020 twice a day 30 10 mg tablet as needed 49442 659794 [id number] Rene Lozada [id number] Nurse Practitioner [id number] Social History Social History Element Description Concept Effective Date Smoking Status Current every day smoker 766396683 8379224 7 Immunizations No Data in Section Vital Signs Encounter Date Height Ins Weight Lbs Bmi Bp Systolic Bp Diastoli c Oxygen Saturation Respiration Rate Pulse Rate Body Temp Head Circumference Heigh t Lying 05/10/2020 0.00 0.00 0.00 0 0 0.00 0 0 0.00 0.0 0.0 0 Procedures Date Concept Id Description Targeted Site Concept Targeted Site Concept Type 05/10/2020 05471-63 [facility] Telemed E/M Lvl 3--Est pt CPT 05/10/2020 22180-64 Telemed A/O 30" CPT Patient has no history of implantable de vices Encounters Encounter Start Date End Date Encounter Type Description Diagnosis Di agnosis Desc Location Author First Name Author Last Name Npid Taxonomy Cod e Taxonomy Desc Phone Number Location Addr1 Location Addr2 Location [facility] Location Sta te Location Zip [id number] 05/10/2020 05/10/2020 11030-02 [facility] Telemed E/M Lvl 3--Est p t F43.10 Post- traumatic stress disorder, unspecified [facility] Rene [id number] [id number] Nurse Practitioner [phone] [address] [address] Plan of Treatment No Data in Section Lab Results No Data in Section Instructions No Data in Section Functional Cognitive Status No Data in Section Insurance Providers Insurance Id Policy Effective Date Policy Thru Date Company N jessica [id number] 2016 [employer] Kristy maher
--- OUTSIDE RECORDS SUMMARY | 2020-06-06 15:37 | CCD ---
Author Author Sade Rendon Organization Unknown Address [address] [place] [address] Phone Care Team Providers Care Station Helper Name Role Phone Justice Kathe PCP Allergies, Adverse Reactions, Alerts No Data in Section Problem List Concept Problem Description Status Start Date Created Date Resolv ed Date Snomed Code F43.10 Posttraumatic Stress Disorde r (includes Posttraumatic Stress Disorder for Children 6 Years and Younger) Active 03/29/2020 F17.200 Tobacco Use Disorder, Moderate Active 0 F15.20 Stimulant Use Disorder, Severe: Other or unspecified s timulant Active 03/29/2020 F12.20 Cannabis Use Disorder, Moderate Active 03/29/20 20 Medications Rx Norm Medication Route Route Concept Start Date Stop Date Dosage Jeff quency Duration Formula Strength Dosage Form Dosage Form Code Dosage Description Medication Id Account Npid Author First Name Author Last Name Taxonomy Code Taxonomy Desc Phone Number [id number] prazosin by mouth [id number] 02/17/2020 05/17/2020 at bedtime 30 1 mg capsule 54093 620617 [id number] Rene Lozada [id number] Nurse Pr actitioner [id number] 419722 venlafaxine by mouth [id number] 02/17/2020 05/17/2020 once a day 30 75 mg capsule,extended release 24hr 55242 041569 [id number] Rene Lozada [id number] Nurse Practitioner [phone] 709947 propranolol by mouth [id number] 02/17/2020 05/17/2020 twice a day 30 10 mg tablet as needed 76233 088999 [id number] Rene Lozada [id number] Nurse Practitioner [id number] Social History Social History Element Description Concept Effective Date Smoking Status Current every day smoker 232619940 4268305 4 Immunizations No Data in Section Vital Signs No Data in Section Procedures Date Concept Id Description Targeted Site Concept Targeted Site Concept Type 03/28/2020 17347 Extended Individual Psychotherapy - 45 min CPT Patient has no history of implantable de vices Encounters Encounter Start Date End Date Encounter Type Description Diagnosis Di agnosis Desc Location Author First Name Author Last Name Npid Taxonomy Cod e Taxonomy Desc Phone Number Location Addr1 Location Addr2 Location [facility] Location Sta te Location Zip [id number] 03/28/2020 03/28/2020 39517 Extended Individual Psych otherapy - 45 min F43.10 Post-traumatic stress disorder, unspecified [facility] Justice Archuleta [phone] [id number] Women Specialist [phone] [address] [place] [address] Plan of Treatment No Data in Section Lab Results No Data in Section Instructions No Data in Section Insurance Providers Insurance Id Policy Effective Date Policy Thru Date [employer] N jessica [id number] 2016 [employer] Managed Manuel maher
--- OUTSIDE RECORDS SUMMARY | 2020-06-06 15:37 | CCD ---
Author Author Sade Rendon Organization Unknown Address [address] [place] [address] Phone Care Team Providers Care Cyberathlete Name Role Phone Justice Kathe PCP Allergies, Adverse Reactions, Alerts No Data in Section Problem List Concept Problem Description Status Start Date Created Date Resolv ed Date Snomed Code F43.10 Posttraumatic Stress Disorde r (includes Posttraumatic Stress Disorder for Children 6 Years and Younger) Active 03/08/2020 F17.200 Tobacco Use Disorder, Moderate Active 0 F15.20 Stimulant Use Disorder, Severe: Other or unspecified s timulant Active 03/08/2020 F12.20 Cannabis Use Disorder, Moderate Active 03/08/20 20 Medications Rx Norm Medication Route Route Concept Start Date Stop Date Dosage Jeff quency Duration Formula Strength Dosage Form Dosage Form Code Dosage Description Medication Id Account Npid Author First Name Author Last Name Taxonomy Code Taxonomy Desc Phone Number [id number] prazosin by mouth [id number] 02/17/2020 05/17/2020 at bedtime 30 1 mg capsule 60396 771987 [id number] Rene Lozada [id number] Nurse Pr actitioner [phone] 484212 venlafaxine by mouth [id number] 02/17/2020 05/17/2020 once a day 30 75 mg capsule,extended release 24hr 54488 140466 [id number] Rene Lozada [id number] Nurse Practitioner [id number] 414539 propranolol by mouth [id number] 02/17/2020 05/17/2020 twice a day 30 10 mg tablet as needed 40185 594425 [id number] Rene Lozada [id number] Nurse Practitioner [phone] Social History Social History Element Description Concept Effective Date Smoking Status Current every day smoker 233326194 3096189 5 Immunizations No Data in Section Vital Signs No Data in Section Procedures Date Concept Id Description Targeted Site Concept Targeted Site Concept Type 03/07/2020 90775 Extended Individual Psychotherapy - 45 min CPT Patient has no history of implantable de vices Encounters Encounter Start Date End Date Encounter Type Description Diagnosis Di agnosis Desc Location Author First Name Author Last Name Npid Taxonomy Cod e Taxonomy Desc Phone Number Location Addr1 Location Addr2 Location [facility] Location [facility] te Location [facility] [id number] 03/07/2020 03/07/2020 40176 Extended Individual Psych otherapy - 45 min F43.10 Post-traumatic stress disorder, unspecified [facility] Justice Archuleta [phone] [id number] Strap Buckler Machine [id number] [address] [place] [address] Plan of Treatment No Data in Section Lab Results No Data in Section Instructions No Data in Section Insurance Providers Insurance Id Policy Effective Date Policy Thru Date [employer] N jessica [id number] 2016 [employer] Managed Manuel maher
--- OUTSIDE RECORDS SUMMARY | 2020-06-06 15:37 | CCD ---
Author Author Sade Rendon Organization Unknown Address [address] [address] Phone Care Team Providers Care Coding Clerks Supervisor Name Role Phone Justice Kathe PCP Allergies, Adverse Reactions, Alerts No Data in Section Problem List Concept Problem Description Status Start Date Created Date Resolv ed Date Snomed Code F43.10 Posttraumatic Stress Disorde r (includes Posttraumatic Stress Disorder for Children 6 Years and Younger) Active 05/07/2020 F17.200 Tobacco Use Disorder, Moderate Active 0 F15.20 Stimulant Use Disorder, Severe: Other or unspecified s timulant Active 05/07/2020 F12.20 Cannabis Use Disorder, Moderate Active 05/07/20 20 Medications Rx Norm Medication Route Route Concept Start Date Stop Date Dosage Jeff quency Duration Formula Strength Dosage Form Dosage Form Code Dosage Description Medication Id Account Npid Author First Name Author Last Name Taxonomy Code Taxonomy Desc Phone Number [id number] prazosin by mouth [id number] 02/17/2020 05/17/2020 at bedtime 30 1 mg capsule 25944 879641 [id number] Rene Lozada [id number] Nurse Pr actitioner [phone] 760200 venlafaxine by mouth [id number] 02/17/2020 05/17/2020 once a day 30 75 mg capsule,extended release 24hr 20932 354690 [id number] Rene Lozada [id number] Nurse Practitioner [phone] 566983 propranolol by mouth G74977 02/17/2020 05/17/2020 twice a day 30 10 mg tablet as needed 06486 941984 [phone] Rene Lozada [id number] Nurse Practitioner [id number] Social History Social History Element Description Concept Effective Date Smoking Status Current every day smoker 450917674 8850600 4 Immunizations No Data in Section Vital Signs No Data in Section Procedures Date Concept Id Description Targeted Site Concept Targeted Site Concept Type 05/07/2020 45472 Extended Individual Psychotherapy - 45 min CPT Patient has no history of implantable de vices Encounters Encounter Start Date End Date Encounter Type Description Diagnosis Di agnosis Desc Location Author First Name Author Last Name Npid Taxonomy Cod e Taxonomy Desc Phone Number Location Addr1 Location Addr2 Location [facility] Location Sta te Location [facility] [id number] 05/07/2020 05/07/2020 86329 Extended Individual Psych otherapy - 45 min F43.10 Post-traumatic stress disorder, unspecified [facility] Justice Archuleta [phone] [id number] Adult Live In Caregiver [phone] [address] [address] Plan of Treatment No Data in Section Lab Results No Data in Section Instructions No Data in Section Insurance Providers Insurance Id Policy Effective Date Policy Thru Date [employer] N jessica [id number] 2016 [employer] Managed Manuel maher
--- OUTSIDE RECORDS SUMMARY | 2020-06-06 15:37 | CCD ---
Author Author Sade Lozada Organization Unknown Address [address] [place] [address] Phone Care Team Providers Care Purchase Price Analyst Name Role Phone Kierra Rene PCP Allergies, Adverse Reactions, Alerts No Data in Section Problem List Concept Problem Description Status Start Date Created Date Resolv ed Date Snomed Code F43.10 Posttraumatic Stress Disorde r (includes Posttraumatic Stress Disorder for Children 6 Years and Younger) Active 03/09/2020 F17.200 Tobacco Use Disorder, Moderate Active 0 F15.20 Stimulant Use Disorder, Severe: Other or unspecified s timulant Active 03/09/2020 F12.20 Cannabis Use Disorder, Moderate Active 03/09/20 20 Medications Rx Norm Medication Route Route Concept Start Date Stop Date Dosage Jeff quency Duration Formula Strength Dosage Form Dosage Form Code Dosage Description Medication Id Account Npid Author First Name Author Last Name Taxonomy Code Taxonomy Desc Phone Number [phone] prazosin by mouth [id number] 02/17/2020 05/17/2020 at bedtime 30 1 mg capsule 28871 [id number] Rene Lozada [id number] Nurse Pr actitioner [phone] venlafaxine by mouth [id number] 02/17/2020 05/17/2020 once a day 30 75 mg capsule,extended release 24hr 13952 427925 [id number] Rene Lozada [id number] Nurse Practitioner [id number] [id number] propranolol by mouth [id number] 02/17/2020 05/17/2020 twice a day 30 10 mg tablet as needed 13191 679133 [id number] Rene Lozada [id number] Nurse Practitioner [id number] Social History Social History Element Description Concept Effective Date Smoking Status Current every day smoker [id number] 6 Immunizations No Data in Section Vital Signs Encounter Date Height Ins Weight Lbs Bmi Bp Systolic Bp Diastoli c Oxygen Saturation Respiration Rate Pulse Rate Body Temp Head Circumference Heigh t Lying 03/09/2020 0.00 0.00 0.00 0 0 0.00 0 0 0.00 0.0 0.0 0 Procedures Date Concept Id Description Targeted Site Concept Targeted Site Concept Type 03/09/2020 39599-37 [facility] Telemed E/M Lvl 3--Est pt CPT 03/09/2020 86030-26 Telemed A/O 30" CPT Patient has no history of implantable de vices Encounters Encounter Start Date End Date Encounter Type Description Diagnosis Di agnosis Desc Location Author First Name Author Last Name Npid Taxonomy Cod e Taxonomy Desc Phone Number Location Addr1 Location Addr2 Location [facility] Location Sta te Location Zip [id number] 03/09/2020 03/09/2020 44127-69 [facility] Telemed E/M Lvl 3--Est p t F43.10 Post- traumatic stress disorder, unspecified [facility] Rene [id number] Nurse Practitioner [id number] [address] [place] [address] [place] [address] Plan of Treatment No Data in Section Lab Results No Data in Section Instructions No Data in Section Functional Cognitive Status No Data in Section Insurance Providers Insurance Id Policy Effective Date Policy Thru Date [email or web address] N jessica [id number] 2016 [employer] Managed Manuel maher
--- OUTSIDE RECORDS SUMMARY | 2020-06-06 15:37 | CCD ---
Author Organization Unknown Address [address] [place] [address] Phone [phone] Care Team Providers Care Biodiesel Engine Specialist Name Role Phone Richard Alvarado Unavailable Unavailable Allergies None recorded. Medications Name Status Start Date Stop Date albuterol sulfate HFA 90 mcg/actuation a erosol inhaler INHALE 1-2 PUFFS BY MOUTH EVERY FOUR HOURS NEEDED Active Not available cetirizine 10 mg tablet Active Not avai lable Cough DM ER 30 mg/5 mL oral suspension,e xtended release TAKE FIVE MILLILITERS BY MOUTH EVERY 12 HOURS FOR 10 DAYS Active Not available omeprazole 20 mg capsule,delayed release TAKE ONE CAPSULE BY MOUTH ONCE DAILY Active No t available prazosin 1 mg capsule Active Not availa ble prednisone 20 mg tablet TAKE ONE TABLET BY MOUTH TWICE DAILY FOR FIVE DAYS Active Not available propranolol 10 mg tablet Active Not des ilable trazodone 50 mg tablet Active Not avail able venlafaxine ER 75 mg capsule,extended release 24 hr Active Not available Problems Name Status Onset Date Source Bipolar Disorder Active 02/24/2014 History Depressive Disorder Active 02/24/2014 History Asthma Active 02/24/2014 History Backache Active 02/24/[address] Concept Active 02/24/2014 History Joint Finding Active 02/24/2014 History Hemorrhage of Rectum and Anus Active 08/15/2014 Hi story Herpesvirus Infection Active History Clinical Finding Active History Procedures None recorded. Results Lab Results None recorded. Past Encounters 04/04/2020 Adult Health Examination Richard Alvarado MD: [address] [place] [address], Ph. Social History None recorded. Vaccine List Vaccine Type influenza, injectable, quadrivalent, pre servative free 04/17/20140.5 mL Plan of Care Reminders Provider Appointments None recorded. Lab None recorded. Referral None recorded. Procedures None recorded. Surgeries None recorded. Imaging None recorded. Vitals None recorded.
--- OUTSIDE RECORDS SUMMARY | 2020-06-06 15:37 | CCD ---
Author Author Sade Lozada Organization Unknown Address [address] [place] [address] Phone Care Team Providers Care Sports Lawyer Name Role Phone Kierra Rene PCP Allergies, Adverse Reactions, Alerts No Data in Section Problem List Concept Problem Description Status Start Date Created Date Resolv ed Date Snomed Code F43.10 Posttraumatic Stress Disorde r (includes Posttraumatic Stress Disorder for Children 6 Years and Younger) Active 03/30/2020 F17.200 Tobacco Use Disorder, Moderate Active 0 F15.20 Stimulant Use Disorder, Severe: Other or unspecified s timulant Active 03/30/2020 F12.20 Cannabis Use Disorder, Moderate Active 03/30/20 20 Medications Rx Norm Medication Route Route Concept Start Date Stop Date Dosage Jeff quency Duration Formula Strength Dosage Form Dosage Form Code Dosage Description Medication Id Account Npid Author First Name Author Last Name Taxonomy Code Taxonomy Desc Phone Number [phone] prazosin by mouth [id number] 02/17/2020 05/17/2020 at bedtime 30 1 mg capsule 55251 [id number] Rene Lozada [id number] Nurse Pr actitioner [phone] venlafaxine by mouth [id number] 02/17/2020 05/17/2020 once a day 30 75 mg capsule,extended release 24hr 12501 155701 [id number] Rene Lozada [id number] Nurse Practitioner [id number] 750483 propranolol by mouth [id number] 02/17/2020 05/17/2020 twice a day 30 10 mg tablet as needed 33631 033139 [id number] Rene Lozada [id number] Nurse Practitioner [id number] Social History Social History Element Description Concept Effective Date Smoking Status Current every day smoker [id number] 6 Immunizations No Data in Section Vital Signs Encounter Date Height Ins Weight Lbs Bmi Bp Systolic Bp Diastoli c Oxygen Saturation Respiration Rate Pulse Rate Body Temp Head Circumference Heigh t Lying 03/30/2020 0.00 0.00 0.00 0 0 0.00 0 0 0.00 0.0 0.0 0 Procedures Date Concept Id Description Targeted Site Concept Targeted Site Concept Type 03/30/2020 30381-48 [facility] Telemed E/M Lvl 3--Est pt CPT 03/30/2020 06961-38 Telemed A/O 30" CPT Patient has no history of implantable de vices Encounters Encounter Start Date End Date Encounter Type Description Diagnosis Di agnosis Desc Location Author First Name Author Last Name Npid Taxonomy Cod e Taxonomy Desc Phone Number Location Addr1 Location Addr2 Location [facility] Location Sta te Location Zip [id number] 03/30/2020 03/30/2020 62039-31 [facility] Telemed E/M Lvl 3--Est p t F43.10 Post- traumatic stress disorder, unspecified [facility] Rene [id number] Nurse Practitioner [id number] [address] [place] [address] [place] [address] Plan of Treatment No Data in Section Lab Results No Data in Section Instructions No Data in Section Functional Cognitive Status No Data in Section Insurance Providers Insurance Id Policy Effective Date Policy Thru Date [employer] N jessica [id number] 2016 [employer] Managed Manuel maher
--- OUTSIDE RECORDS SUMMARY | 2020-06-06 15:37 | CCD ---
Author Author Sade Rendon Organization Unknown Address [address] [address] Phone Care Team Providers Care Peanut Separator Name Role Phone Justice Kathe PCP Allergies, [...] Name Taxonomy Code Taxonomy Desc Phone Number [phone] prazosin by mouth [id number] 02/17/2020 05/17/2020 at bedtime 30 1 mg capsule 55610 [id number] [id number] Rene Lozada [id number] Nurse Pr actitioner [id number] venlafaxine by mouth [id number] 02/17/2020 05/17/2020 once a day 30 75 mg capsule,extended release 24hr 88038 837818 [id number] Rene Lozada [id number] Nurse Practitioner [phone] 724553 propranolol by mouth [id number] 02/17/2020 05/17/2020 twice a day 30 10 mg tablet as needed 16999 311017 [id number] Rene Lozada [id number] Nurse Practitioner [id number] Social History Social History Element Description Concept Effective Date Smoking Status Current every day smoker [id number] 2931216 7 Immunizations No Data in Section Vital Signs No Data in Section Procedures Date Concept Id Description Targeted Site Concept Targeted Site Concept Type 05/10/2020 20761 Brief Individual Psychotherapy - 30 min CPT Patient has no history of implantable de vices Encounters Encounter Start Date End Date Encounter Type Description Diagnosis Di agnosis Desc Location Author First Name Author Last Name Npid Taxonomy Cod e Taxonomy Desc Phone Number Location Addr1 Location Addr2 Location [facility] Location [facility] Location [facility] [id number] 05/10/2020 05/10/2020 82086 Brief Individual Psychoth erapy - 30 min F43.10 Post-traumatic stress disorder, unspecified [facility] Justice Archuleta [phone] [id number] Movement Assembly Final Inspector [id number] [address] [address] Plan of Treatment No Data in Section Lab Results No Data in Section Instructions No Data in Section Insurance Providers Insurance Id Policy Effective Date Policy Thru Date Company N jessica [id number] 2016 [employer] Managed Manuel maher
--- OUTSIDE RECORDS SUMMARY | 2020-06-06 15:37 | CCD ---
Author Organization Unknown Address [address] [place] [address] Phone [phone] Care Team Providers Care Patrol Agent Name Role Phone Richard Alvarado Unavailable Unavailable Allergies Code Code System Name Reaction Severity Status Onset NKDA Medications Name Status Start Date Stop Date albuterol sulfate HFA 90 mcg/actuation a erosol inhaler INHALE 1-2 PUFFS BY MOUTH EVERY FOUR HOURS NEEDED Active Not available cetirizine 10 mg tablet Completed 04/23/20 20 Cough DM ER 30 mg/5 mL oral suspension,e xtended release TAKE FIVE MILLILITERS BY MOUTH EVERY 12 HOURS FOR 10 DAYS Completed 04/23/2020 omeprazole 20 mg capsule,delayed release Active Not available prazosin 1 mg capsule Active Not availa ble prednisone 20 mg tablet TAKE ONE TABLET BY MOUTH TWICE DAILY FOR FIVE DAYS Completed 04/23/2020 propranolol 10 mg tablet Active Not des ilable trazodone 50 mg tablet TAKE ONE TABLET BY MOUTH AT BEDTIME NEEDED Active Not available venlafaxine ER 75 mg capsule,extended release 24 [...] Active History Clinical Finding Active History Procedures Date Name Performed by Tooth Extraction, Complete Lower Informa tion not available Tooth Extraction, Complete Upper Informa tion not available Cholecystectomy Information not avai lable Results Lab Results Date Name Specimen Result Interpretation Description Value Range Status Address 04/04/2020 CMP, Serum or Plasma High Glucose, Fastin g 201 mg/dL 70-100 mg/dL [facility]: 83 0 [facility] Normal Blood Urea Nitrogen 10 mg/dL 7-18 mg /dL [facility]: 830 [facility] Normal Creatinine for GFR 0.73 mg/dL 0.55-1 .30 mg/dL [facility]: 0 [facility] Normal Glomerular Filtration Rate > 60.0 >6 0 [facility]: 830 [facility] Normal Sodium Level 137 mEq/L 136-145 mEq/L [facility]: 830 [facility] Normal Potassium Serum 4.3 mEq/L 3.5-5.1 mE q/L [facility]: 830 [facility] Normal Chloride Level 105 mEq/L 98-107 mEq/ L [facility]: 830 [facility] Normal Carbon Dioxide Level 26 mEq/L 21-32 mEq/L [facility]: [address] [place] [address] Low Anion Gap 6 mEq/L 8-16 mEq/L [facility]: 0 [facility] Normal Calcium Level 8.8 mg/dL 8.5-10.1 mg/ dL [facility]: 830 [facility] High AST/SGOT 758 U/L 7-37 U/L [facility]: 0 [facility] High ALT/SGPT 1290 U/L 12-78 U/L [facility]: 830 [facility] Normal Alkaline Phosphatase 100 U/L 45-117 U/L [facility]: 0 [facility] Normal Bilirubin,total 0.8 mg/dL 0.2-1.0 mg /dL [facility]: 830 [facility] Normal Total Protein 7.3 gm/dL 6.4-8.2 gm/d L [facility]: 830 [facility] Normal Albumin 3.5 gm/dL 3.2-5.2 gm/dL [facility]: 0 [facility] Low Albumin/globulin Ratio 0.9 1.2-2. 2 [facility]: 0 [facility] 04/04/2020 Lipid Panel, Blood Normal Triglycerides Lev el 67 mg/dL <150 mg/dL [facility]: 83 0 [facility] Normal Cholesterol Level 150 mg/dL <200 mg/ dL [facility]: 830 [facility] Normal HDL Cholesterol 53 mg/dL >40 mg/dL F [facility]: 830 [facility] Normal LDL Cholesterol 84 mg/dL <100 mg/dL Final [facility]: 830 [facility] Normal Non-hdl-c 97 mg/dL Final [facility]: 830 [facility] Normal Cholesterol Risk Ratio 2.830 <5 [facility]: 830 [facility] 04/04/2020 TSH + Free T4, Serum Normal Thyroid Stimulating Hormone 1.880 uIU/mL 0.358-3.740 uIU/mL [facility] nter: 830 [facility] High Free T4 1.52 NG/dL 0.76-1.46 NG/dL F [facility]: 830 [facility] 04/04/2020 HbA1C (Hemoglobin a1C), Blood Normal Hemogl obin a1C 6.4 % [facility]: 830 [facility] High Estimated Average Glucose 137 mg/dL 60-110 mg/dL [facility]: 830 [facility] Past Encounters 04/23/2020 Liver Function Tests Abnormal; Increased Frequency of Urination; Administration of Influenza Vaccine Richard Alvarado MD: [address] [place] [address], Ph. 04/04/2020 Adult Health Examination Richard Alvarado MD: [address] [place] [address], Ph. Social History Tobacco Smoking Status Heavy Tobacco Smoker (1 /2 PPD) Vaccine List Vaccine Type influenza, injectable, quadrivalent, pre servative free 04/17/20140.5 mL Notes: Pt would like Flu vaccine this vi sit Plan of Care Reminders Provider Appointments None recorded. Lab None recorded. Referral None recorded. Procedures None recorded. Surgeries None recorded. Imaging None recorded. Vitals Height Weight BMI Blood Pressure 63 in 285 lbs 50.5 kg/m2 121/86 mm[Hg]
--- OUTSIDE RECORDS SUMMARY | 2020-06-06 15:37 | CCD ---
Author Author Sade Rendon Organization Unknown Address [address] [place] [address] Phone Care Team Providers Care Gamma Ray Operator Name Role Phone Justice Kathe PCP Allergies, Adverse Reactions, Alerts No Data in Section Problem List Concept Problem Description Status Start Date Created Date Resolv ed Date Snomed Code F43.10 Posttraumatic Stress Disorde r (includes Posttraumatic Stress Disorder for Children 6 Years and Younger) Active 04/23/2020 F17.200 Tobacco Use Disorder, Moderate Active 0 F15.20 Stimulant Use Disorder, Severe: Other or unspecified s timulant Active 04/23/2020 F12.20 Cannabis Use Disorder, Moderate Active 04/23/20 20 Medications Rx Norm Medication Route Route Concept Start Date Stop Date Dosage Jeff quency Duration Formula Strength Dosage Form Dosage Form Code Dosage Description Medication Id Account Npid Author First Name Author Last Name Taxonomy Code Taxonomy Desc Phone Number [phone] prazosin by mouth [id number] 02/17/2020 05/17/2020 at bedtime 30 1 mg capsule 08631 036885 [id number] Rene Lozada [id number] Nurse Pr actitioner [phone] 709051 venlafaxine by mouth [id number] 02/17/2020 05/17/2020 once a day 30 75 mg capsule,extended release 24hr 37657 785459 [id number] Rene Lozada [id number] Nurse Practitioner [id number] [id number] propranolol by mouth [id number] 02/17/2020 05/17/2020 twice a day 30 10 mg tablet as needed 53853 866303 [id number] Rene Lozada [id number] Nurse Practitioner [id number] Social History Social History Element Description Concept Effective Date Smoking Status Current every day smoker [id number] 4842476 0 Immunizations No Data in Section Vital Signs No Data in Section Procedures Date Concept Id Description Targeted Site Concept Targeted Site Concept Type 04/23/2020 79560 Extended Individual Psychotherapy - 45 min CPT Patient has no history of implantable de vices Encounters Encounter Start Date End Date Encounter Type Description Diagnosis Di agnosis Desc Location Author First Name Author Last Name Npid Taxonomy Cod e Taxonomy Desc Phone Number Location Addr1 Location Addr2 Location [facility] Location [facility] Location Zip [id number] 04/23/2020 04/23/2020 89915 Extended Individual Psych otherapy - 45 min F43.10 Post-traumatic stress disorder, unspecified [facility] Justice Archlueta [id number] Learning Specialist [phone] [address] [place] [address] Plan of Treatment No Data in Section Lab Results No Data in Section Instructions No Data in Section Insurance Providers Insurance Id Policy Effective Date Policy Thru Date [employer] N jessica [id number] 2016 [employer] Managed Manuel maher
--- OUTSIDE RECORDS SUMMARY | 2020-06-06 15:37 | CCD ---
Author Sade Camp Organization Unknown Address [address] [address] Phone Care Team Providers Care Health Care Coordinator Name Role Phone Justice Kathe PCP Allergies, Adverse Reactions, Alerts No Data in Section Problem List Concept Problem Description Status Start Date Created Date Resolv ed Date Snomed Code F43.10 Posttraumatic Stress Disorde r (includes Posttraumatic Stress Disorder for Children 6 Years and Younger) Active 05/21/2020 F17.200 Tobacco Use Disorder, Moderate Active 0 F15.20 Stimulant Use Disorder, Severe: Other or unspecified s timulant Active 05/21/2020 F12.20 Cannabis Use Disorder, Moderate Active 05/21/20 20 F10.229 Alcohol Intoxication, With alcohol use d isorder, Moderate or Severe Active 05/21/2020 Medications No Data in Section Social History Social History Element Description Concept Effective Date Smoking Status Current every day smoker [id number] 8 Immunizations No Data in Section Vital Signs No Data in Section Procedures Date Concept Id Description Targeted Site Concept Targeted Site Concept Type 05/21/2020 01111 Extended Individual Psychotherapy - 45 min CPT Patient has no history of implantable de vices Encounters Encounter Start Date End Date Encounter Type Description Diagnosis Di agnosis Desc Location Author First Name Author Last Name Npid Taxonomy Cod e Taxonomy Desc Phone Number Location Addr1 Location Addr2 Location [facility] Location [facility] Location Zip [id number] 05/21/2020 05/21/2020 88283 Extended Individual Psych otherapy - 45 min F43.10 Post-traumatic stress disorder, unspecified [facility] [place] Justice Archuleta [phone] [id number] Calender Machine Operator [phone] [address] [address] Plan of Treatment No Data in Section Lab Results No Data in Section Instructions No Data in Section Insurance Providers Insurance Id Policy Effective Date Policy Thru Date [employer] N jessica [id number] 2016 [employer] Managed Manuel maher
--- OUTSIDE RECORDS SUMMARY | 2020-06-06 15:37 | CCD ---
Author Author Sade Rendon Organization Unknown Address [address] [address] Phone Care Team Providers Care Fall Internship Name Role Phone Justice Kathe PCP Allergies, Adverse Reactions, Alerts No Data in Section Problem List Concept Problem Description Status Start Date Created Date Resolv ed Date Snomed Code F43.10 Posttraumatic Stress Disorde r (includes Posttraumatic Stress Disorder for Children 6 Years and Younger) Active 05/14/2020 F17.200 Tobacco Use Disorder, Moderate Active 0 F15.20 Stimulant Use Disorder, Severe: Other or unspecified s timulant Active 05/14/2020 F12.20 Cannabis Use Disorder, Moderate Active 05/14/20 20 Medications Rx Norm Medication Route Route Concept Start Date Stop Date Dosage Jeff quency Duration Formula Strength Dosage Form Dosage Form Code Dosage Description Medication Id Account Npid Author First Name Author Last Name Taxonomy Code Taxonomy Desc Phone Number [phone] prazosin by mouth [id number] 02/17/2020 05/17/2020 at bedtime 30 1 mg capsule 71063 244514 [id number] Rene Lozada [id number] Nurse Pr actitioner [id number] 332885 venlafaxine by mouth [id number] 02/17/2020 05/17/2020 once a day 30 75 mg capsule,extended release 24hr 94835 936143 [id number] Rene Lozada [id number] Nurse Practitioner [phone] 391681 propranolol by mouth [id number] 02/17/2020 05/17/2020 twice a day 30 10 mg tablet as needed 17652 827226 [id number] Rene Lozada [id number] Nurse Practitioner [id number] Social History Social History Element Description Concept Effective Date Smoking Status Current every day smoker [id number] 1734825 1 Immunizations No Data in Section Vital Signs No Data in Section Procedures Date Concept Id Description Targeted Site Concept Targeted Site Concept Type 05/14/2020 20554 Extended Individual Psychotherapy - 45 min CPT Patient has no history of implantable de vices Encounters Encounter Start Date End Date Encounter Type Description Diagnosis Di agnosis Desc Location Author First Name Author Last Name Npid Taxonomy Cod e Taxonomy Desc Phone Number Location Addr1 Location Addr2 Location [facility] Location [facility] te Location [facility] [id number] 05/14/2020 05/14/2020 68222 Extended Individual Psych otherapy - 45 min F43.10 Post-traumatic stress disorder, unspecified [facility] Justice Archuleta [phone] [id number] Puncher [phone] [address] [address] Plan of Treatment No Data in Section Lab Results No Data in Section Instructions No Data in Section Insurance Providers Insurance Id Policy Effective Date Policy Thru Date [employer] N jessica [id number] 2016 [employer] Managed Manuel maher
--- OUTSIDE RECORDS SUMMARY | 2020-06-06 15:38 | CCD ---
Author Author [facility] Organization [facility] Address Unknown Phone Unavailable Care Team Providers Care Pool Servicer Name Role Phone Jesusita Alvarado MD Unavailable Unavailable Jesusita Alvarado MD Unavailable Unavailable Jesusita Alvarado MD Unavailable Unavailable Jesusita Alvarado MD Unavailable Unavailable Jesusita Alvarado MD Unavailable Unavailable Jesusita Alvarado MD Unavailable Unavailable Jesusita Alvarado MD Unavailable Unavailable Jesusita Alvarado MD Unavailable Unavailable Jesusita Alvarado MD Unavailable Unavailable Jesusita Alvarado MD Unavailable Unavailable Jesusita Alvarado MD Unavailable Unavailable Jesusita Alvarado MD Unavailable Unavailable Jesusita Alvarado MD Unavailable Unavailable Jesusita Alvarado MD Unavailable Unavailable Jesusita Alvarado MD Unavailable Unavailable Jesusita Alvarado MD Unavailable Unavailable Jesusita Alvarado MD Unavailable Unavailable Jesusita Alvarado MD Unavailable Unavailable Jesusita Alvarado MD Unavailable Unavailable Jesusita Alvarado MD Unavailable Unavailable Jesusita Alvarado MD Unavailable Unavailable Jesusita Alvarado MD Unavailable Unavailable Jesusita Alvarado MD Unavailable Unavailable Jesusita Alvarado MD Unavailable Unavailable Jesusita Alvarado MD Unavailable Unavailable Jesusita Alvarado MD Unavailable Unavailable Jesusita Alvarado MD Unavailable Unavailable Jesusita lAvarado MD Unavailable Unavailable Jesusita Alvarado MD Unavailable Unavailable Jesusita Alvarado MD Unavailable Unavailable Jesusita Alvarado MD Unavailable Unavailable Jesusita Alvarado MD Unavailable Unavailable Jesusita Alvarado MD Unavailable Unavailable Jesusita Alvarado MD Unavailable Unavailable Jesusita Alvarado MD Unavailable Unavailable Jesusita Alvarado MD Unavailable Unavailable Jesusita Alvarado MD Unavailable Unavailable Jesusita Alvarado MD Unavailable Unavailable Jesusita Alvarado MD Unavailable Unavailable Jesusita Alvarado MD Unavailable Unavailable Jesusita Alvarado MD Unavailable Unavailable Jesusita Alvarado MD Unavailable Unavailable Jesusita Alvarado MD Unavailable Unavailable Jesusita Alvarado MD Unavailable Unavailable Jesusita Alvarado MD Unavailable Unavailable Jesusita Alvarado MD Unavailable Unavailable Jesusita Alvarado MD Unavailable Unavailable Jesusita Alvarado MD Unavailable Unavailable Jesusita Alvarado MD Unavailable Unavailable Jesusita Alvarado MD Unavailable Unavailable Jesusita Alvarado MD Unavailable Unavailable Jesusita Alvarado MD Unavailable Unavailable Jesusita Alvarado MD Unavailable Unavailable Jesusita Alvarado MD Unavailable Unavailable Jesusita Alvarado MD Unavailable Unavailable Jesusita Alvarado MD Unavailable Unavailable Jesusita Alvarado MD Unavailable Unavailable Jesusita Alvarado MD Unavailable Unavailable Jesusita Alvarado MD Unavailable Unavailable Jesusita Alvarado MD Unavailable Unavailable Jesusita Alvarado MD Unavailable Unavailable Jesusita Alvarado MD Unavailable Unavailable Jesusita Alvarado MD Unavailable Unavailable Jesusita Alvarado MD Unavailable Unavailable Jesusita Alvarado MD Unavailable Unavailable Jesusita Alvarado MD Unavailable Unavailable Jesusita Alvarado MD Unavailable Unavailable Jesusita Alvarado MD Unavailable Unavailable Jesusita Alvarado MD Unavailable Unavailable Jesusita Alvarado MD Unavailable Unavailable Jesusita Alvarado MD Unavailable Unavailable Jesusita Alvarado MD Unavailable Unavailable Jesusita Alvarado MD Unavailable Unavailable Jesusita Alvarado MD Unavailable Unavailable Jesusita Alvarado MD Unavailable Unavailable Jesusita Alvarado MD Unavailable Unavailable Jesusita Alvarado MD Unavailable Unavailable Jesusita Alvarado MD Unavailable Unavailable Jesusita Alvarado MD Unavailable Unavailable Jesusita Alvarado MD Unavailable Unavailable Jesusita Alvarado MD Unavailable Unavailable Jesusita Alvarado MD Unavailable Unavailable Jesusita Alvarado MD Unavailable Unavailable Jesusita Alvarado MD Unavailable Unavailable Jesusita Alvarado MD Unavailable Unavailable Jesusita Alvarado MD Unavailable Unavailable Jesusita Alvarado MD Unavailable Unavailable Jesusita Alvarado MD Unavailable Unavailable Jesusita Alvarado MD Unavailable Unavailable Jesusita Alvarado MD Unavailable Unavailable Jesusita Alvarado MD Unavailable Unavailable Jesusita Alvarado MD Unavailable Unavailable Jesusita Alvarado MD Unavailable Unavailable Jesusita Alvarado MD Unavailable Unavailable Jesusita Alvarado MD Unavailable Unavailable Jesusita Alvarado MD Unavailable Unavailable Jesusita Alvarado MD Unavailable Unavailable Jesusita Alvarado MD Unavailable Unavailable Jesusita Alvarado MD Unavailable Unavailable Jesusita Alvarado MD Unavailable Unavailable Jesusita Alvarado MD Unavailable Unavailable Jesusita Alvarado MD Unavailable Unavailable Jesusita Alvarado MD Unavailable Unavailable Jesusita Alvarado MD Unavailable Unavailable Jesusita Alvarado MD Unavailable Unavailable Jesusita Alvarado MD Unavailable Unavailable Jesusita Alvarado MD Unavailable Unavailable Jesusita Alvarado MD Unavailable Unavailable Jesusita Alvarado MD Unavailable Unavailable Jesusita Alvarado MD Unavailable Unavailable Jesusita Alvarado MD Unavailable Unavailable Jesusita Alvarado MD Unavailable Unavailable Jesusita Alvarado MD Unavailable Unavailable Jesusita Alvarado MD Unavailable Unavailable Jesusita Alvarado MD Unavailable Unavailable Jesusita Alvarado MD Unavailable Unavailable Jesusita Alvarado MD Unavailable Unavailable Jesusita Alvarado MD Unavailable Unavailable Jesusita Alvarado MD Unavailable Unavailable Jesusita Alvarado MD Unavailable Unavailable Jesusita Alvarado MD Unavailable Unavailable Jesusita Alvarado MD Unavailable Unavailable Jesusita Alvarado MD Unavailable Unavailable Jesusita Alvarado MD Unavailable Unavailable Jesusita Alvarado MD Unavailable Unavailable Jesusita Alvarado MD Unavailable Unavailable Jesusita Alvarado MD Unavailable Unavailable Jesusita Alvarado MD Unavailable Unavailable Jesusita Alvarado MD Unavailable Unavailable Jesusita Alvarado MD Unavailable Unavailable Jesusita Alvarado MD Unavailable Unavailable Jesusita Alvarado MD Unavailable Unavailable Jesusita Alvarado MD Unavailable Unavailable Jesusita Alvarado MD Unavailable Unavailable Jesusita Alvarado MD Unavailable Unavailable Jesusita Alvarado MD Unavailable Unavailable Jesusita Alvarado MD Unavailable Unavailable Jesusita Alvarado MD Unavailable Unavailable Jesusita Alvarado MD Unavailable Unavailable Jesusita Alvarado MD Unavailable Unavailable Jesusita Alvarado MD Unavailable Unavailable Jesusita Alvarado MD Unavailable Unavailable Jesusita Alvarado MD Unavailable Unavailable Jesusita Alvarado MD Unavailable Unavailable Jesusita Alvarado MD Unavailable Unavailable Jesusita Alvarado MD Unavailable Unavailable Jesusita Alvraado MD Unavailable Unavailable Jesusita Alvarado MD Unavailable Unavailable Jesusita Alvarado MD Unavailable Unavailable Jesusita Alvarado MD Unavailable Unavailable Jesusita Alvarado MD Unavailable Unavailable Jesusita Alvarado MD Unavailable Unavailable Jesusita Alvarado MD Unavailable Unavailable Jesusita Alvarado MD Unavailable Unavailable Jesusita Alvarado MD Unavailable Unavailable Jesusita Alvarado MD Unavailable Unavailable Jesusita Alvarado MD Unavailable Unavailable Jesusita Alvarado MD Unavailable Unavailable Jesusita Alvarado MD Unavailable Unavailable Jesusita Alvarado MD Unavailable Unavailable Jesusita Alvarado MD Unavailable Unavailable Jesusita Alvarado MD Unavailable Unavailable Jesusiat Alvarado MD Unavailable Unavailable Jesusita Alvarado MD Unavailable Unavailable Jesusita Alvarado MD Unavailable Unavailable Jesusita Alvarado MD Unavailable Unavailable Jesusita Alvarado MD Unavailable Unavailable Jesusita Alvarado MD Unavailable Unavailable Jesusita Alvarado MD Unavailable Unavailable Jesusita Alvarado MD Unavailable Unavailable Jesusita Alvarado MD Unavailable Unavailable Jesusita Alvarado MD Unavailable Unavailable Jesusita Alvarado MD Unavailable Unavailable Jesusita Alvarado MD Unavailable Unavailable Jesusita Alvarado MD Unavailable Unavailable Jesusita Alvarado MD Unavailable Unavailable Jesusita Alvarado MD Unavailable Unavailable Jesusita Alvarado MD Unavailable Unavailable Kathe Rendon Unavailable [id number] Unavailable Unavailable Flor Lozada NP Unavailable Unavailable Re-disclosure Warning The records that you are about to access may contain information from federally-assisted alcohol or drug abuse programs. If such information is present, then the following federally mandated warning applies: This information has been disclosed to you from records protected by federal confidentiality rules (42 CFR part 2). The federal rules prohibit you from making any further disclosure of this information unless further disclosure is expressly permitted by the written consent of the person to whom it pertains or as otherwise permitted by 42 CFR part 2. A general authorization for the release of medical or other information is NOT sufficient for this purpose. The Federal rules restrict any use of the information to criminally investigate or prosecute any alcohol or drug abuse patient.The records that you are about to access may contain highly sensitive health information, the redisclosure of which is protected by Article 27-F of the [facility] Public Health law. If you continue you may have access to information: Regarding HIV / AIDS; Provided by facilities licensed or operated by the [facility] Office of Mental Health; or Provided by the [facility] Office for People With Developmental Disabilities. If such information is present, then the following [facility] mandated warning applies: This information has been disclosed to you from confidential records which are protected by state law. State law prohibits you from making any further disclosure of this information without the specific written consent of the person to whom it pertains, or as otherwise permitted by law. Any unauthorized further disclosure in violation of state law may result in a fine or assisted sentence or both. A general authorization for the release of medical or other information is NOT sufficient authorization for further disc losure. Allergies and Adverse Reactions Type Description Substance Reaction Status Data Source(s ) Allergy to substance Allergy to substance Allergy to substance [facility] ([facility]) Family History Family Member Name Family Member Gender Family Member Status Date o f Status Description Data Source(s) Unknown Unknown Problem [facility] ([facility]) Unknown Unknown Problem [facility] ([facility]) Encounters Encounter Providers Location Date Indications Data Source(s ) Extended Individual Psychotherapy - 45 min Attender: Kathe Rendon [facility] 05/21/2020 09:00:00 AM EST - 05/21/2020 09:00:00 AM EST [facility] ([facility]) Attender: Kathe Rendon 05/21/2020 12:00:00 AM EST [facility] ([facility]) Extended Individual Psychotherapy - 45 min Attender: Kathe Rendon [facility] 05/14/2020 09:00:00 AM EST - 05/14/2020 09:00:00 AM EST [facility] ([facility]) Attender: Kathe Renodn 05/14/2020 12:00:00 AM EST [facility] ([facility]) Outpatient Attender: Rene Lozada NP [facility] 05/10/2020 11:00:00 AM EST - 05/10/2020 11:00:00 AM EST [facility] ([facility]) Brief Individual Psychotherapy - 30 min Attender: Ktahe duncan [facility] 05/10/2020 10:00:00 AM EST - 05/10/2020 10:00:00 AM EST [facility] ([facility]) Attender: Kathe Rendon 05/10/2020 12:00:00 AM EST [facility] ([facility]) Attender: Rene Lozada NP 05/10/2020 12:00:00 AM EST [facility] ([facility]) Extended Individual Psychotherapy - 45 min Attender: Kathe Rendon [facility] 05/07/2020 09:00:00 AM EST - 05/07/2020 09:00:00 AM EST [facility] ([facility]) Attender: Kathe Rendon 05/07/2020 12:00:00 AM EST [facility] ([facility]) Extended Individual Psychotherapy - 45 min Attender: Kathe Justice [facility] 04/30/2020 02:15:00 AM EST - 04/30/2020 02:15:00 AM EST [facility] ([facility]) Attender: Kathe Rendon 04/30/2020 12:00:00 AM EST [facility] ([facility]) Outpatient Attender: Rene Lozada NP [facility] 04/27/2020 01:30:00 AM EST - 04/27/2020 01:30:00 AM EST [facility] ([facility]) Attender: Rene Lozada NP 04/27/2020 12:00:00 AM EST [facility] ([facility]) Extended Individual Psychotherapy - 45 min Attender: Kathe Rendon [facility] 04/23/2020 09:00:00 AM EST - 04/23/2020 09:00:00 AM EST [facility] ([facility]) Richard Alvarado MD: [address] [place] [phone], Ph. Attender: Richard Alvarado MD [facility] Medical 04/23/2020 12:00:00 AM EST [facility] ([facility]) Attender: Kathe Rendon 04/23/2020 12:00:00 AM EST [facility] ([facility]) [id number]"Psychotherapy Attender: Kathe Justice [facility] 04/16/2020 09:00:00 AM EST - 04/16/2020 09:00:00 AM EST [facility] ([facility]) Attender: Kathe Rendon 04/16/2020 12:00:00 AM EST [facility] ([facility]) Richard Alvarado MD: [address] [place] [address] [phone], Ph. Attender: Richard Alvarado MD [facility] Medical 04/04/2020 12:00:00 AM EST [facility] ([facility]) Richard Alvarado MD: [address] [place] [address] [phone], Ph. Attender: Richard LAMAS [facility] Medical 04/04/2020 12:00:00 AM EST [facility] ([facility]) Attender: Kathe Rendon 04/03/2020 12:00:00 AM EST [facility] ([facility]) Extended Individual Psychotherapy - 45 min Attender: Kathe Rendon [facility] 04/02/2020 09:45:00 AM EST - 04/02/2020 09:45:00 AM EST [facility] ([facility]) Outpatient Attender: Rene Lozada NP [facility] 03/30/2020 01:30:00 AM EST - 03/30/2020 01:30:00 AM EST [facility] ([facility]) Attender: Rene Lozada NP 03/30/2020 12:00:00 AM EST [facility] ([facility]) Extended Individual Psychotherapy - 45 min Attender: Kathe Rendon [facility] 03/28/2020 11:15:00 AM EST - 03/28/2020 11:15:00 AM EST [facility] ([facility]) Attender: Kathe Rendon 03/28/2020 12:00:00 AM EST [facility] ([facility]) Outpatient Attender: Richard Alvarado MD [facility] 03/09/2020 04:11:03 PM EDT [facility] Outpatient Attender: Richard Alvarado MD [facility] 03/09/2020 03:59:00 PM EDT [facility] Outpatient Attender: Rene Lozada NP [facility] 03/09/2020 09:30:00 AM EDT - 03/09/2020 09:30:00 AM EDT [facility] ([facility]) Outpatient Attender: Richard Alvarado MD [facility] 03/09/2020 08:47:00 AM EDT [facility] Attender: Rene Lozada NP 03/09/2020 12:00:00 AM EDT [facility] ([facility]) Attender: Kathe Rendon 03/08/2020 12:00:00 AM EDT [facility] ([facility]) Outpatient Attender: Richard Alvarado MD [facility] 03/07/2020 12:01:08 PM EDT [facility] Outpatient Attender: Richard Alvarado MD [facility] 03/07/2020 11:59:00 AM EDT [facility] Outpatient Attender: Richard Alvarado MD [facility] 03/07/2020 11:58:01 AM EDT [facility] Outpatient Attender: OTTO [facility] 03/07/2020 09:48:02 AM EDT [facility] Outpatient Attender: OTTO [facility] 03/07/2020 09:48:01 AM EDT [facility] Outpatient Attender: OTTO [facility] 03/07/2020 08:57:01 AM EDT [facility] Extended Individual Psychotherapy - 45 min Attender: Kathe Rendon [facility] 03/07/2020 03:15:00 AM EDT - 03/07/2020 03:15:00 AM EDT [facility] ([facility]) Outpatient Attender: OTTO [facility] 02/22/2020 11:21:03 AM EDT [facility] 09:00:00 AM EDT - 02/17/2020 09:00:00 AM EDT [facility] ([facility]) Attender: Rene Lozada NP 02/17/2020 12:00:00 AM EDT [facility] ([facility]) Outpatient Attender: OTTO [facility] 02/07/2020 03:51:01 PM EDT [facility] Psychiatric Diagnostic Evaluation (Non-Medical) Attender: Sami Rendon [facility] 01/31/2020 02:00:00 AM EDT - 01/31/2020 02:00:00 AM EDT [facility] ([facility]) Attender: Kathe Rendon 01/31/2020 12:00:00 AM EDT [facility] ([facility]) Outpatient Attender: [facility] 01/03/2020 06:28:54 AM EDT [facility] Outpatient Attender: OTTO [facility] 01/02/2020 11:37:00 AM EDT [facility] Functional Status Medications Medication Brand Name Start Date Product Form Dose Route Admi nistrative Instructions Pharmacy Instructions Status Indications Reaction Description Data Source(s) 1 mg 05/30/2020 12:00:00 AM EST capsule 90 TAKE THREE CAPSULES BY MOUTH AT BEDTIME TAKE THREE CAPSULES BY MOUTH AT BEDTIME SOLD: 05/31/2020 [facility] 8-2 mg 05/30/2020 12:00:00 AM EST film [address] ONE FILM UNDER THE TONGUE TWICE A DAY MAXIMUM DAILY DOSE = [address] ONE FILM UNDER THE TONGUE TWICE A DAY MAXIMUM DAILY DOSE = 2 FILM SOLD: 05/31/2020 [facility] Propranolol Hydrochloride 10 MG Oral Tablet propranolol 02/17/2020 12:00:00 AM EDT 10 mg by mouth completed [id number] propranolol by manohar th [id number] 02/17/2020 05/17/2020 twice a day 30 10 mg tablet as needed [id number] 1 [id number] Rene Lozada [id number] Nurse Practitioner Ketan dic ([facility]) Prazosin 1 MG Oral Capsule prazosin 02/17/2020 12:00:00 AM EDT 1 mg by mouth completed [id number] prazosin by mouth [id number] 02/17/2020 at bedtime 30 1 mg capsule 77552 [id number] Rene Lozada [id number] Nurse Practitioner Pola ([facility]) 24 HR venlafaxine 75 MG Extended Release Oral Capsule venlaf axine 02/17/2020 12:00:00 AM EDT 75 mg by mouth completed [id number] ve nlafaxine by mouth [id number] 02/17/2020 05/17/2020 once a day 30 75 mg capsule,extended release 24hr [id number] Rene Lozada [id number] Nurse Pracjovanny Nulledic ([facility]) Prednisone 20 MG Oral Tablet prednisone 20 mg tablet TAKE ONE TABLET BY MOUTH TWICE DAILY FOR FIVE DAYS prednisone 20 mg tablet TAKE ONE TABLET BY MOUTH TWICE DAILY FOR FIVE DAYS completed pr ednisone 20 MG Oral Tablet [facility] ([facility]) cetirizine hydrochloride 10 MG Oral Tablet cetirizine 10 mg tablet cetirizine 10 mg tablet completed cetirizine h ydrochloride 10 MG Oral Tablet [facility] ([facility]) 12 HR dextromethorphan polistirex 6 MG/M L Extended Release Suspension Cough DM ER 30 mg/5 mL oral suspension,extended release TAKE FIVE MILLILITERS BY MOUTH EVERY 12 HOURS FOR 10 DAYS Cough DM ER 30 mg/5 mL oral suspension,e xtended release TAKE FIVE MILLILITERS BY MOUTH EVERY 12 HOURS FOR 10 DAYS completed 12 HR dextromethorph an polistirex 6 MG/ML Extended Release Suspension B[facility] ([facility]) Insurance Providers Payer name Policy type / Coverage type Policy ID Covered alliance party ID Covered alliance party's relationship to leonard Policy Leonard Plan Information [facility] COMMUN[facility]AN [facility] [id number] SP [id number] [facility] Care [facility] Community Plan P [id number] S [id number] Medicaid S [id number] S [id number] Medicaid P [id number] S [id number] [facility]) O [id number] S [id number] [facility] COMM[facility]AN [facility] [id number] SP [id number] MEDICAID [id number] SP [id number] Medicaid [place] Self MEDICAID W [id number] S [id number] MEDICAID M [id number] Self [id number] MEDICAID W [id number] S [id number] MEDICAID M [id number] S [id number] Problems, Conditions, and Diagnoses Code Display Name Description Problem Type Effective Dates Data Source(s) F10.229 Alcohol dependence with intoxication, un specified Alcohol Intoxication, With alcohol use disorder, Moderate or Severe Condition 05/21/20 20 12:00:00 AM EST [facility] ([facility]) F12.20 Cannabis dependence, uncomplicated Cannabis Use Disorder, Moderate Condition 05/21/2020 12:00:00 AM EST [facility] ([facility]) F15.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, uncomplicate d Stimulant Use Disorder, Severe: Other or unspecified stimulant Condition 05/21/2020 12:00:00 AM EST [facility] ([facility]) F17.200 Nicotine dependence, unspecified, uncomp licated Tobacco Use Disorder, Moderate Condition 05/21/2020 12:00:00 AM EST [facility] ([facility]) F43.10 Post-traumatic stress disorder, unspecif ied Posttraumatic Stress Disorder (includes Posttraumatic Stress Disorder for Children 6 Years and Younger) Condition 05/21/2020 12:00:00 AM EST [facility] ([facility]) [id number] Clinical finding Clinical Finding Problem 03/08/2020 05 :21:31 PM EDT [facility] ([facility]) [id number] Herpesvirus infection Herpesvirus Infection Problem 03/08/2020 05:21:31 PM EDT [facility] ([facility]) [id number] Clinical finding Clinical Finding Problem 03/08/2020 05 :21:31 PM EDT [facility] ([facility]) [id number] Herpesvirus infection Herpesvirus Infection Problem 03/08/2020 05:21:31 PM EDT [facility] ([facility]) 530.81 Gastro-esophageal reflux disease without esophagitis Gastro-esophageal reflux disease without esophagitis 03/07/2020 09:47:03 AM ED T [facility] F32.9 Major depressive disorder, single episod e, unspecified Unspecified depressive Disorder Condition 02/17/2020 12:00:00 AM EDT [facility] ([facility]) F41.9 Anxiety disorder, unspecified Unspecified Anxiety Diso rder Condition 02/17/2020 12:00:00 AM EDT [facility] ([facility]) Surgeries/Procedures Procedure Description Date Indications Data Source(s) Extended Individual Psychotherapy - 45 min 05/21/2020 12:00:00 AM EST - 05/21/2020 12:00:00 AM EST [facility] ([facility]) Extended Individual Psychotherapy - 45 min 0 12:00:00 AM EST [facility] ([facility]) Extended Individual Psychotherapy - 45 min 05/14/2020 12:00:00 AM EST - 05/14/2020 12:00:00 AM EST [facility] ([facility]) Extended Individual Psychotherapy - 45 min 0 12:00:00 AM EST [facility] ([facility]) Brief Individual Psychotherapy - 30 min 05/10/2020 12:00:00 AM EST - 05/10/2020 12:00:00 AM EST [facility] ([facility]) Brief Individual Psychotherapy - 30 min 05/10/2020 12: 00:00 AM EST [facility] ([facility]) MHC Telemed E/M Lvl 3--Est pt 05/10/2020 12:00:00 AM EST - 05/10/2020 12:00:00 AM EST [facility] ([facility]) Telemed A/O 30" 05/10/2020 12:00:00 AM EST [facility] ([facility]) MHC Telemed E/M Lvl 3--Est pt 05/10/2020 12:00:[address] [facility] ([facility]) Extended Individual Psychotherapy - 45 min 05/07/2020 12:00:00 AM EST - 05/07/2020 12:00:00 AM EST [facility] ([facility]) Extended Individual Psychotherapy - 45 min 0 12:00:00 AM EST [facility] ([facility]) Extended Individual Psychotherapy - 45 min 04/30/2020 12:00:00 AM EST - 04/30/2020 12:00:00 AM EST [facility] ([facility]) Extended Individual Psychotherapy - 45 min 0 12:00:00 AM EST [facility] ([facility]) MHC Telemed E/M Lvl 3--Est pt 04/27/2020 12:00:00 AM EST - 04/27/2020 12:00:00 AM EST [facility] ([facility]) MHC Telemed E/M Lvl 3--Est pt 04/27/2020 12:00:[address] [facility] ([facility]) Extended Individual Psychotherapy - 45 min 04/23/2020 12:00:00 AM EST - 04/23/2020 12:00:00 AM EST [facility] ([facility]) Extended Individual Psychotherapy - 45 min 0 12:00:00 AM EST [facility] ([facility]) [id number]"Psychotherapy 0 12:00:00 AM EST - 04/16/2020 12:00:00 AM EST [facility] ([facility]) [id number]"Psychotherapy 04/16/2020 12:00:00 AM EST [facility] ([facility]) Extended Individual Psychotherapy - 45 min 04/03/2020 12:00:00 AM EST - 04/03/2020 12:00:00 AM EST [facility] ([facility]) Extended Individual Psychotherapy - 45 min 0 12:00:00 AM EST [facility] ([facility]) MHC Telemed E/M Lvl 3--Est pt 03/30/2020 12:00:00 AM EST - 03/30/2020 12:00:00 AM EST [facility] ([facility]) Telemed A/O 30" 03/30/2020 12:00:00 AM EST [facility] ([facility]) MHC Telemed E/M Lvl 3--Est pt 03/30/2020 12:00:[address] [facility] ([facility]) Extended Individual Psychotherapy - 45 min 03/28/2020 12:00:00 AM EST - 03/28/2020 12:00:00 AM EST [facility] ([facility]) Extended Individual Psychotherapy - 45 min 0 12:00:00 AM EST [facility] ([facility]) MHC Telemed E/M Lvl 3--Est pt 03/09/2020 12:00:00 AM EDT - 03/09/2020 12:00:00 AM EDT [facility] ([facility]) Telemed A/O 30" 03/09/2020 12:00:00 AM EDT [facility] ([facility]) MHC Telemed E/M Lvl 3--Est pt 03/09/2020 12:00:00 AM E DT [facility] ([facility]) Extended Individual Psychotherapy - 45 min 03/08/2020 12:00:00 AM EDT - 03/08/2020 12:00:00 AM EDT [facility] ([facility]) Extended Individual Psychotherapy - 45 min 0 12:00:00 AM EDT [facility] ([facility]) Telemed Diagnostic Eval 02/17/2020 12:00 :00 AM EDT - 02/17/2020 12:00:00 AM EDT [facility] ([facility]) Telemed Diagnostic Eval 02/17/2020 12:00:00 AM EDT [facility] ([facility]) Psychiatric Diagnostic Evaluation (Non-Medical) 01/31/2020 12:00:00 AM EDT - 01/31/2020 12:00:00 AM EDT [facility] ([facility]) Psychiatric Diagnostic Evaluation (Non-Medical) 2019 12:00:00 AM EDT [facility] ([facility]) Results ID Date Data Source [id number] 04/04/2020 09:30:00 AM EST [facility]) Name Value Range Interpretation Code Description Data Melida rce(s) Supporting Document(s) Hemoglobin A1c/Hemoglobin.total in Blood 6.4 % normal Hemoglobin a1C [facility]) estimated average glucose 137 mg/dL 60-110 Above high norm al Estimated Average Glucose [facility]) ID Date Data Source [id number] 04/04/2020 09:30:00 [facility] Name Value Range Interpretation Code Description Data Melida rce(s) Supporting Document(s) thyroid stimulating hormone 1.880 uIU/mL 0.358-3.740 normal Thyroid Stimulating Hormone [facility]) free T4 1.52 NG/dL 0.76-1.46 Above high normal Free T4 [facility]) ID Date Data Source [id number] 04/04/2020 09:30:00 AM [facility] Name Value Range Interpretation Code Description Data Melida rce(s) Supporting Document(s) cholesterol level 150 mg/dL <200 normal Cholesterol Level [facility] ([facility]) triglycerides level 67 mg/dL <150 normal Triglycerides Le kristie [facility] ([facility]) non-HDL-C 97 mg/dL normal Non-hdl-c [facility] ([facility]) HDL cholesterol 53 mg/dL >40 normal HDL Cholesterol ATHE ([facility]) cholesterol risk ratio <5 normal Cholesterol R isk Ratio [facility] ([facility]) Cholesterol in LDL [Mass/volume] in Serum or Plasma 84 mg/dL <1 00 normal LDL Cholesterol [facility] ([facility]) ID Date Data Source [id number] 04/04/2020 09:30:00 AM EST [facility] ([facility]) Name Value Range Interpretation Code Description Data Melida rce(s) Supporting Document(s) glucose, fasting 201 mg/dL 70-100 Above high normal Glucose, Fas ting [facility] ([facility]) glomerular filtration rate > 60.0 >60 normal Glomerula r Filtration Rate [facility] ([facility]) creatinine for GFR 0.73 mg/dL 0.55-1.30 normal Creatinine for GF R [facility] ([facility]) blood urea nitrogen 10 mg/dL 7-18 normal Blood Urea Nitro gen [facility] ([facility]) sodium level 137 mEq/L 136-145 normal Sodium Level [facility] ([facility]) anion gap 6 mEq/L 8-16 Below low normal Anion Gap [facility] ( [facility]) potassium serum 4.3 mEq/L 3.5-5.1 normal Potassium Serum ATHE NA ([facility]) carbon dioxide level 26 mEq/L 21-32 normal Carbon Dioxide Level [facility] ([facility]) chloride level 105 mEq/L 98-107 normal Chloride Level [facility] ([facility]) ALT/SGPT 1290 U/L 12-78 Above high normal ALT/SGPT [facility] ([facility]) calcium level 8.8 mg/dL 8.5-10.1 normal Calcium Level [facility] ( [facility]) bilirubin,total 0.8 mg/dL 0.2-1.0 normal Bilirubin,total ATHE ([facility]) AST/SGOT 758 U/L 7-37 Above high normal AST/SGOT [facility] ([facility]) alkaline phosphatase 100 U/L 45-117 normal Alkaline Phosph atase [facility] ([facility]) total protein 7.3 gm/dL 6.4-8.2 normal Total Protein [facility] ( [facility]) albumin/globulin ratio 1.2-2.2 Below low normal Albumin /globulin Ratio COL[facility] ([facility]) albumin 3.5 gm/dL 3.2-5.2 normal Albumin [facility] ([facility]) ID Date Data Source [id number] 03/07/2020 08:58:20 AM EDT [facility] Measurements & CalculationsHeight: 63 inches (5 ft. 3 in.) 160.02 cm Weight: 292.8 pounds 133.09 kg Body Mass Index (BMI): 52.05BMI Interpretation: Morbidly ObeseBody Surface Area (BSA): 2.28Weight Management Education Done (Nutrition/Physical Activity)Vital SignsTemperature: 96.0FPulse Rate: 72 beats/minuteRespiratory Rate: 16 respirations/minuteBlood Pressure: 141/88 O2 Saturation: 99% Vital Signs performed by: Letha Perez ME, March 07, 2020 9:06 AMInitial Intake Information From: patientRoom #: 15Infectious Disease / Travel ScreeningRecent travel for you or any close contacts? NoHave you had any close contact with anyone diagnosed with or under investigation for COVID-19 (coronavirus)? NoFever? NoRespiratory symptoms: cough, cold, congestion, shortness of breath, difficulty breathing? NoLoss of smell? NoLoss of taste? NoSmoking, Tobacco, Vaping or Smoke Exposure StatusSmoke Status: current every day smokerTobacco Use: YesAdv to Quit: YesDo you vape? NoMenstrual HistoryLast Menstrual Period (LMP): 03/01/2020Any possibility of ? NoHealthcare HistorySince your last office visit...Have you been admitted to the hospital? NoHave you been to an emergency room (ER) or urgent care clinic? NoHave you seen another healthcare provider? Yes - community clinic Have you seen a dentist? NoIntake performed by: Letha Perez MA, March 07, 2020 9:01 AMRate Your HealthIn general, would you say your health is? FairPain AssessmentAre you currently having any pain which... You would like your provider to address? Yes Affects your activity level? YesDepression Screening - PHQ-2Over the last two weeks, have you... Had little interest or pleasure in doing things? Not at all Been feeling down, depressed, or hopeless? Not at all PHQ-2 Score: 0Anxiety Screening - YVON-2Over the last two weeks, have you been... Feeling nervous, anxious, or on edge? Not at all Unable to stop or control worrying? Not at all YVON-2 Score: 0Pain AssessmentPain ScaleNumeric Rating Scale: 5 / 10Location: backDuration: chronicFrequency: DailyCharacter/Quality: burning. needles Is the pain radiating? YesPRAPARE Sociodemographic Characteristics Race: White Ethnicity: Not or Preferred Language: EnglishScreening, Brief Intervention, & Referral to Treatment (SBIRT)Pre- Screening Questions How many times have you have 4 or more drinks in a day? 0How many times have you used an illegal drug or used a prescription medication for a non-medical reason? 365Performed by: Letha Perez MA, March 07, 2020 9:02 AMPatient History Surgical History:ovarian cyst removedc-section gallbladder removed Family History:Mom: alcoholic,breast cancer, diabetes Social/Personal History: Advised to Quit/Tobacco Education: YesChief Complaintestablish care History of Present Illness (HPI)Chronic low back pain. Right llumbar with occasional radiation down right leg to knee. No numbness and no tingling. No better and no worse with time. No relief with over the counter pain medications and she does not want to take a lot of medications for this to begin with.Sees Community for mental health medications and counselling and this seems to be going well.Smokes marijuana every day. This helps the pain and the depression. Saw a chiropractor a few times and this helped but she can no longer afford it. They did X rays. We are going to work on getting the results.Problems with acid reflux. Was on omeprazole in the past with good relief. Has been taking over the counter antacids. HPI performed by: Richard Alvarado MD, March 07, 2020 9:15 AMTransitions of Care InboundProblem ReviewProblem List was reviewed and/or updated during this visit.Medication Reconciliation & ReviewMedication List was reviewed and/or updated during this visit, including review of any qxsn-qey-ibfcalo medications, herbal therapies, and/or supplements.Allergy ReviewAllergy List was reviewed and/or updated during this visit.Adult Preve ntive CareProvider Calculated and Reviewed all Clinical Protocols for patient today. Screening Tobacco Screening: Smoking Status: current every day smoker (03/07/2020) Tobacco Use: Currently (03/07/2020) Advised to Quit: Yes (03/07/2020)Labs/Meds/Other Counseling-Nutrition and Physical Activity:BMI Interpretation: Morbidly Obese (03/07/2020) Counseling: Done (03/07/2020) Physical Activity: Done (03/07/2020)Cancer Screening Pap Smear/HPV TestingReviewed: Today's Comments: needs referral, [facility] General: Denies chills, dizziness, fatigue, fever. Cardiovascular: Denies chest pain, palpitations. Respiratory: Denies difficulty breathing, shortness of breath. Gastrointestinal: Denies diarrhea, constipation. Genitourinary: Denies burning with urination, urinary frequency, urinary urgency, incomplete emptying. Physical ExamRespiratory, Auscultation: clear to auscultation bilaterally; no rales, rhonchi, or wheezesRespiratory, Effort: no intercostal retractions or use of accessory musclesCardiovascular, Auscultation: S1, S2 audible; no murmur, rub, or gallop; RRRPeripheral Circulation: no clubbing, cyanosis, edema, or varicositiesGait & Station: norm alBack: Moderately limited ROM.Upper Extremity, Right: 0 patellar reflexes bilaterally.Lower Extremity, Left: Strength 5/5 bilateral lower extremities.Skin, Inspection: no rashes, lesions, or ulcerationsOrientation: oriented to time, place, and personMood & Affect: no depression, anxiety, or agitationJudgment & Insight: intactCare Management Plan Transitions of CareInboundRate Your HealthIn general, would you say your health is? FairAssessment & Plan Problems:Added: Gastro-esophageal reflux disease without esophagitis (ICD-530.81) (SGR25-O72.9) Assessment: Instructions: Start omeprazole.Assessed:BACK PAIN (ICD-724.5) (BEC91-U26.9) Assessment: Instructions: Chronic, stable and well controlled Marijuana seems to be helping.We discussed the possibility of PT. She has had this in the past and this has made it worse.DIABETES, TYPE 2 (ICD-250.00) (WFD11-M61.9) Assessment: Instructions: Encouraged diet, exercise and weight loss. This should help both the sugars and her low back pain.Patient Instructions/Care Plan: BACK PAIN: Chronic, stable and well controlled Marijuana seems to be helping.We discussed the possibility of PT. She has had this in the past and this has made it worse.Gastro-esophageal reflux disease without esophagitis: Start omeprazole.DIABETES- TYPE 2: Encouraged diet, exercise and weight loss. This should help both the sugars and her low back pain. Plan developed in collaboration with patient and/or familyMedications:EFFEXOR XR 75 MG ORAL CAPSULE EXTENDED RELEASE 24 HOURINDERAL XL CAPSULE EXTENDED RELEASE 24 HOURMINIPRESS 1 MG ORAL CAPSULEMedication Changes:Added: MINIPRESS 1 MG ORAL CAPSULE-one at bedtimeINDERAL XL CAPSULE EXTENDED RELEASE 24 HOUR-bid prnEFFEXOR XR 75 MG ORAL CAPSULE EXTENDED RELEASE 24 HOUR-one in the morningRemoved:MOBIC 15 MG ORAL TABLET-1 pill po daily, LAMICTAL 100 MG ORAL TABLET-1 po bid, WELLBUTRIN 75 MG ORAL TABLET-1 po every am, AMBIEN 5 MG ORAL TABLET-1 po at bedtime, VENTOLIN HFA 108 (90 BASE) MCG/ACT INHALATION AEROSOL SOLUTION-2 puffs every 6 hrs, prnAllergies:No Known Allergies (updated 08/02/2014) Orders:COMP METABOLIC PANEL [CPT-50192] HgBA1c [CPT-20297] LIPID PANEL [CPT-11320] TSH [CPT- 78164] T-4 free [CPT-74613] Adult - Ofc Vst, EST, Level III [CPT-57930] Follow- Up Return to clinic: 3 months for follow upAdditional Follow-Up: Fasting blood tests over the next 1-2 weeks. Name Value Range Interpretation Code Description Data Melida rce(s) Supporting Document(s) ID Date Data Source [id number] 02/19/2020 03:16:00 PM EDT [facility] Name Value Range Interpretation Code Description Data Melida rce(s) Supporting Document(s) SARS coronavirus 2 RNA [facility] This lab was ordered by [facility] and reported by [facility]. ID Date Data Source [id number] 02/13/2020 12:00:00 AM EDT [facility] Name Value Range Interpretation Code Description Data Melida rce(s) Supporting Document(s) SARS coronavirus 2 RNA [Presence] in Res piratory specimen by JOY with probe detection [facility] This lab was ordered by Liseth Burr and reported by [facility]. ID Date Data Source [id number] 02/07/2020 12:00:00 AM EDT [facility] Angelica Tovar Patient Name: Jayla MCKEON Disc Regeneration Date of : [address] Date of Exam: 02/07/2020CYDNEY Burr [id number]#: Fax: [phone] EXAM: LUMBOSACRAL SPINE (4 VIEWS)CLINICAL INFORMATION: Atraumatic back pain.AP and lateral views.The exam is limited by technique secondary to patient body habitus.There is a mild levoconvex curve. The disc spaces are symmetric and wellmaintained. Vertebral body height and alignment is within normal limitsalthough seen in a limited fashion involving the lower lumbar level. Thepedicles are intact bilaterally.IMPRESSION:Negative but somewhat limited exam with findings as described above.CAREY Michael/Thaddeus you for referring NAIDA MCKEON to our office. Electronically Signed - FARNAZ BERRY DO 02/08/20 16:32 Name Value Range Interpretation Code Description Data Melida rce(s) Supporting Document(s) ID Date Data Source [id number] 02/07/2020 12:00:00 AM EDT [facility] Angelica Tovar Patient Name: NEHEMIAS MCKEONpinal Disc Regeneration Date of : [facility] Date of Exam: 02/07/2020CYDNEY Burr [id number]#: Fax: [phone] EXAM: THORACIC SPINE (3 VIEW) XRAYCLINICAL INFORMATION: Atraumatic back pain.AP and lateral views.The disc spaces are symmetric and relatively well maintained. There is noacute fracture or destructive osseous lesion.There is minimal anterior lipping seen throughout the thoracic spine butparticularly at the T7-8 level.CAREY Michael/jmcThank you for referring NAIDA MCKEON to our office. Electronically Signed - FARNAZ BERRY DO 02/08/20 16:32 Name Value Range Interpretation Code Description Data Melida rce(s) Supporting Document(s) ID Date Data Source [id number] 02/07/2020 12:00:00 AM EDT [facility] Angelica Tovar Patient Name: NEHEMIAS MCKEONpinal Disc Regeneration Date of : [address] Date of Exam: 02/07/2020CYDNEY Burr [id number]#: Fax: [phone] EXAM: CERVICAL SPINE COMPLETE XRAYCLINICAL INFORMATION: Atraumatic neck pain.There are no prior cervical spine xrays for comparison.Limited AP and lateral views show the facet joints to be well alignedbilaterally. Disc space are symmetric and well maintained throughout.Vertebral body height and alignment is within normal limits.IMPRESSION:Negative limited AP and lateral views of the cervical spine.CAREY Michael/Thaddeus you for referring NAIDA MCKEON to our office. Electronically Signed - FARNAZ BERRY DO 02/08/20 16:32 Name Value Range Interpretation Code Description Data Melida rce(s) Supporting Document(s) Procedure Social History Code Duration Value Status Description Data Source(s ) Smoking 05/21/2020 12:00:00 AM EST Current every day smoker co mpleted Current every day smoker [facility] ([facility]) Smoking 05/14/2020 12:00:00 AM EST Current every day smoker co mpleted Current every day smoker [facility] ([facility]) Smoking 05/10/2020 12:00:00 AM EST Current every day smoker co mpleted Current every day smoker [facility] ([facility]) Smoking 05/07/2020 12:00:00 AM EST Current every day smoker co mpleted Current every day smoker [facility] ([facility]) Smoking 04/30/2020 12:00:00 AM EST Current every day smoker co mpleted Current every day smoker [facility] ([facility]) Smoking 04/27/2020 12:00:00 AM EST Current every day smoker co mpleted Current every day smoker [facility] ([facility]) Smoking 04/23/2020 12:00:00 AM EST Current every day smoker co mpleted Current every day smoker [facility] ([facility]) Smoking 04/16/2020 12:00:00 AM EST Current every day smoker co mpleted Current every day smoker [facility] ([facility]) Smoking 04/03/2020 12:00:00 AM EST Current every day smoker co mpleted Current every day smoker [facility] ([facility]) Smoking 03/30/2020 12:00:00 AM EST Current every day smoker co mpleted Current every day smoker [facility] ([facility]) Smoking 03/28/2020 12:00:00 AM EST Current every day smoker co mpleted Current every day smoker [facility] ([facility]) Smoking 03/09/2020 12:00:00 AM EDT Current every day smoker co mpleted Current every day smoker [facility] ([facility]) Smoking 03/08/2020 12:00:00 AM EDT Current every day smoker co mpleted Current every day smoker [facility] ([facility]) Smoking 02/17/2020 12:00:00 AM EDT Current every day smoker co mpleted Current every day smoker [facility] ([facility]) Smoking 01/31/2020 12:00:00 AM EDT Current every day smoker co mpleted Current every day smoker [facility] ([facility]) Vital Signs ID Date Data Source UNK Name Value Range Interpretation Code Description Data Source(s) Diastolic blood pressure 0 mm[Hg] Normal (applies to non-numeric results) 0 mm[Hg] [facility] ([facility]) Systolic blood pressure 0 mm[Hg] Normal (applies t o non-numeric results) 0 mm[Hg] [facility] ([facility]) Body mass index (BMI) [Ratio] 0.00 kg/m2 No rmal (applies to non-numeric results) 0.00 kg/m2 [facility] ([facility]) Body weight Measured 0.00 lbs Normal (applies to n on-numeric results) 0.00 lbs [facility] ([facility]) Body height 0.00 in Normal (applies to non-numeric resu lts) 0.00 in [facility] ([facility]) Diastolic blood pressure 0 mm[Hg] Normal (applies to non-numeric results) 0 [facility]Hg] [facility] Systolic blood pressure 0 mm[Hg] Normal (applies t o non-numeric results) 0 mm[Hg] [facility] Body mass index (BMI) [Ratio] 0.00 kg/m2 No rmal (applies to non-numeric results) 0.00 kg/m2 [facility] ([facility]) Body weight Measured 0.00 lbs Normal (applies to n on-numeric results) 0.00 lbs [facility] ([facility]) Body height 0.00 in Normal (applies to non-numeric resu lts) 0.00 in [facility] Body weight 4560 [oz_av] 4560 [oz_av] [facility] ([facility]) Systolic blood pressure 121 mm[Hg] 121 mm[Hg] [facility] ([facility]) Body mass index (BMI) [Ratio] 50.5 kg/m2 50.5 k g/m2 [facility] ([facility]) Body height 63 [in_i] 63 [in_i] [facility] ([facility]) Diastolic blood pressure 86 mm[Hg] 86 mm[Hg] [facility] ([facility]) Diastolic blood pressure 0 mm[Hg] Normal (applies to non-numeric results) 0 mm[Hg] [facility] ([facility]) Systolic blood pressure 0 mm[Hg] Normal (applies t o non-numeric results) 0 mm[Hg] [facility] ([facility]) Body mass index (BMI) [Ratio] 0.00 kg/m2 No rmal (applies to non-numeric results) 0.00 kg/m2 [facility] ([facility]) Body weight Measured 0.00 lbs Normal (applies to n on-numeric results) 0.00 lbs [facility] Body height 0.00 in Normal (applies to non-numeric resu lts) 0.00 [facility]) Diastolic blood pressure 0 mm[Hg] Normal (applies to non-numeric results) 0 mm[Hg] [facility] ([facility]) Systolic blood pressure 0 mm[Hg] Normal (applies t o non-numeric results) 0 mm[Hg] [facility] ([facility]) Body mass index (BMI) [Ratio] 0.00 kg/m2 No rmal (applies to non-numeric results) 0.00 kg/m2 [facility] Body weight Measured 0.00 lbs Normal (applies to n on-numeric results) 0.00 lbs [facility] ([facility]) Body height 0.00 in Normal (applies to non-numeric resu lts) 0.00 in [facility] ([facility]) Diastolic blood pressure 0 mm[Hg] Normal (applies to non-numeric results) 0 mm[Hg] [facility] ([facility]) Systolic blood pressure 0 mm[Hg] Normal (applies t o non-numeric results) 0 mm[Hg] [facility] ([facility]) Body mass index (BMI) [Ratio] 42.51 kg/m2 No rmal (applies to non-numeric results) 42.51 kg/m2 [facility] [place] [facility] Body weight Measured 240.00 lbs Normal (applies to n on-numeric results) 240.00 lbs [facility] ([facility]) Body height 63.00 in Normal (applies to non-numeric resu lts) 63.00 in [facility] ([facility]) Patient Treatment Plan of Care Planned Activity Planned Date Details Description Data Source (s) Prednisone 20 MG Oral Tablet BRI ([facility]) 12 HR dextromethorphan polistirex 6 MG/ML Extended Release Suspensi on BRI ([facility]) cetirizine hydrochloride 10 MG Oral Tablet BRI ([facility])
[2020-06-06] MEDS ORDERED: OMEP-218 PO (15:45)
[2020-06-06] MEDS ORDERED: TRAZ-252 (15:45)
[2020-06-06] MEDS ORDERED: INDE60CA4 PO (15:45)
[2020-06-06] MEDS ORDERED: SUBO8MIS SL (15:45)
[2020-06-06] MEDS ORDERED: EFFE150C2 PO (15:45)
--- OUTSIDE RECORDS SUMMARY | 2020-06-06 17:31 | CCD ---
Author Author [facility] Organization [facility] Address Unknown Phone Unavailable Care Team Providers Care Cosmetology Instructor Name Role Phone Jesusita Alvarado MD Unavailable [...] Unavailable Unavailable Jesusita Alvarado MD Unavailable Unavailable Jesustia Alvarado MD Unavailable Unavailable Jesusita Alvarado MD [...] Alvarado MD Unavailable Unavailable Kathe Rendon Unavailable [id number] Unavailable Unavailable Flor Lozada NP Unavailable [...] is protected by Article 27-F of the [facility] Public Health law. If you continue you may have access to information: Regarding HIV / AIDS; Provided by facilities licensed or operated by the [facility] Office of Mental Health; or Provided by the [facility] Office for People With Developmental Disabilities. If such information is present, then the following [facility] mandated warning applies: This information has [...] Allergy to substance Allergy to substance [facility] ([facility]) Family History Family Member Name Family Member Gender Family Member Status Date o f Status Description Data Source(s) Unknown Unknown Problem MEDENT ([facility]) Unknown Unknown Problem MEDENT ([facility]) Encounters Encounter Providers Location Date Indications Data Source(s ) Extended Individual Psychotherapy - 45 min Attender: Kathe Rendon [facility] 05/21/2020 09:00:00 AM EST - 05/21/2020 09:00:00 AM EST [facility] ([facility]) Attender: Kathe Rendon 05/21/2020 12:00:00 AM EST [facility] ([facility]) Extended Individual Psychotherapy - 45 min Attender: Kathe Rendon [facility] 05/14/2020 09:00:00 AM EST - 05/14/2020 09:00:00 AM EST [facility] ([facility]) Attender: Kathe Rendon 05/14/2020 12:00:00 AM EST [facility] ([facility]) Outpatient Attender: Rene Lozada NP [facility] 05/10/2020 11:00:00 AM EST - 05/10/2020 11:00:00 AM EST [facility] ([facility]) Brief Individual Psychotherapy - 30 min Attender: Kathe duncan [facility] 05/10/2020 10:00:00 AM EST - 05/10/2020 10:00:00 AM EST [facility] ([facility]) Attender: Kathe Rendon 05/10/2020 12:00:00 AM EST [facility] ([facility]) Attender: Rene Lozada NP 05/10/2020 12:00:00 AM EST [facility] ([facility]) Extended Individual Psychotherapy - 45 min Attender: Kathe Rendon [facility] 05/07/2020 09:00:00 AM EST - 05/07/2020 09:00:00 AM EST [facility] ([facility]) Attender: Kathe Rendon 05/07/2020 12:00:00 AM EST [facility] ([facility]) Extended Individual Psychotherapy - 45 min Attender: Kathe Rendon [facility] 04/30/2020 02:15:00 AM EST - 04/30/2020 02:15:00 AM EST [facility] ([facility]) Attender: Kathe Rendon 04/30/2020 12:00:00 AM EST [facility] ([facility]) Outpatient Attender: Rene Lozada NP [facility] 04/27/2020 01:30:00 AM EST - 04/27/2020 01:30:00 AM EST [facility] ([facility]) Attender: Rene Lozada NP 04/27/2020 12:00:00 AM EST [facility] ([facility]) Extended Individual Psychotherapy - 45 min Attender: Kathe Rendon [facility] 04/23/2020 09:00:00 AM EST - 04/23/2020 09:00:00 AM EST [facility] ([facility]) Richard Alvarado MD: [address] [place] [address] [phone], Ph. Attender: Richard Alvarado MD [facility] Medical 04/23/2020 12:00:00 AM EST BRI ([facility]) Attender: Kathe Rendon 04/23/2020 12:00:00 AM EST [facility] ([facility]) [id number]"Psychotherapy Attender: Kathe Rendon [facility] 04/16/2020 09:00:00 AM EST - 04/16/2020 09:00:00 AM EST [facility] ([facility]) Attender: Kathe Rendon 04/16/2020 12:00:00 AM EST [facility] ([facility]) Richard Alvarado MD: [address] [place] [address] [phone], Ph. Attender: Richard Alvarado MD [facility] Medical 04/04/2020 12:00:00 AM EST BRI ([facility]) Richard Alvarado MD: [address] [place] [address] [phone], Ph. Attender: Richard LAMAS [facility] Medical 04/04/2020 12:00:00 AM EST [facility] ([facility]) Attender: Kathe Rendon 04/03/2020 12:00:00 AM EST [facility]) Extended Individual Psychotherapy - 45 min Attender: Kathe Rendon [facility] 04/02/2020 09:45:00 AM EST - 04/02/2020 09:45:00 AM EST [facility] ([facility]) Outpatient Attender: Rene Lozada NP [facility] 03/30/2020 01:30:00 AM EST - 03/30/2020 01:30:00 AM EST [facility] ([facility]) Attender: Rene Lozada NP 03/30/2020 12:00:00 AM EST [facility] ([facility]) Extended Individual Psychotherapy - 45 min Attender: Kathe Rendon [facility] 03/28/2020 11:15:00 AM EST - 03/28/2020 11:15:00 AM EST [facility] ([facility]) Attender: Kathe Rendon 03/28/2020 12:00:00 AM EST [facility] ([facility]) Outpatient Attender: Richard Alvarado MD [facility]ULT [facility] 03/09/2020 04:11:03 PM EDT [facility] Outpatient Attender: Richard Alvarado MD ADULT PC 03/09/2020 03:59:00 PM EDT [facility] Outpatient Attender: Rene Lozada NP [facility] 03/09/2020 09:30:00 AM EDT - 03/09/2020 09:30:00 AM EDT [facility] ([facility]) Outpatient Attender: Richard Alvarado MD ADULT PC 03/09/2020 08:47:00 AM EDT [facility] Attender: Rene Lozada NP 03/09/2020 12:00:00 AM EDT [facility] ([facility]) Attender: Kathe Rendon 03/08/2020 12:00:00 AM EDT [facility] ([facility]) Outpatient Attender: Richard Alvarado MD ADULT PC 03/07/2020 12:01:08 PM EDT [facility] Outpatient Attender: Richard Alvarado MD ADULT PC 03/07/2020 11:59:00 AM EDT [facility] Outpatient Attender: Richard Alvarado MD ADULT PC 03/07/2020 11:58:01 AM EDT [facility] Outpatient Attender: OTTO [facility] 03/07/2020 09:48:02 AM EDT [facility] Outpatient Attender: OTTO [facility] 03/07/2020 09:48:01 AM EDT [facility] Outpatient Attender: OTTO [facility] 03/07/2020 08:57:01 AM EDT [facility] Extended Individual Psychotherapy - 45 min Attender: Kathe Rendon [facility] 03/07/2020 03:15:00 AM EDT - 03/07/2020 03:15:00 AM EDT [facility] ([facility]) Outpatient Attender: OTTO [facility] 02/22/2020 11:21:03 AM EDT [facility]med [facility] 09:00:00 AM EDT - 02/17/2020 09:00:00 AM EDT [facility] ([facility]) Attender: Rene Lozada NP 02/17/2020 12:00:00 AM EDT [facility] ([facility]) Outpatient Attender: OTTO [facility] 02/07/2020 03:51:01 PM EDT [facility] Psychiatric Diagnostic Evaluation (Non-Medical) Attender: Sami Rendon [facility] 01/31/2020 02:00:00 AM EDT - 01/31/2020 02:00:00 AM EDT [facility] ([facility]) Attender: Kathe Rendon 01/31/2020 12:00:00 AM EDT [facility] ([facility]) Outpatient Attender: OTTO [facility] 01/03/2020 06:28:54 AM EDT [facility] Outpatient Attender: OTTO [facility] 01/02/2020 11:37:00 AM EDT [facility] Functional Status Medications Medication Brand Name Start Date Product Form Dose Route Admi nistrative Instructions Pharmacy Instructions Status Indications Reaction Description Data Source(s) 1 mg 05/30/2020 12:00:00 AM EST capsule 90 TAKE THREE CAPSULES BY MOUTH AT BEDTIME TAKE THREE CAPSULES BY MOUTH AT BEDTIME SOLD: 05/31/2020 [facility] 8-2 mg 05/30/2020 12:00:00 AM EST film [address] ONE FILM UNDER THE TONGUE TWICE A DAY MAXIMUM DAILY DOSE = [address] ONE FILM UNDER THE TONGUE TWICE A DAY MAXIMUM DAILY DOSE = 2 FILM SOLD: 05/31/2020 [facility] Propranolol Hydrochloride 10 MG Oral Tablet propranolol 02/17/2020 12:00:00 AM EDT 10 mg by mouth completed [id number] propranolol by manohar th [id number] 02/17/2020 05/17/2020 twice a day 30 10 mg tablet as needed [id number] 1 [id number] Rene Lozada [id number] Nurse Practitioner Ketan dic ([facility]) Prazosin 1 MG Oral Capsule prazosin 02/17/2020 12:00:00 AM EDT 1 mg by mouth completed [id number] prazosin by mouth [id number] 02/17/2020 at bedtime 30 1 mg capsule 51704 [id number] Rene Lozada [id number] Nurse Practitioner Pola ([facility]) 24 HR venlafaxine 75 MG Extended Release Oral Capsule venlaf axine 02/17/2020 12:00:00 AM EDT 75 mg by mouth completed 966127 ve nlafaxine by mouth [id number] 02/17/2020 05/17/2020 once a day 30 75 mg capsule,extended release 24hr 83061 [id number] Rene Lozada [id number] Nurse Pracjovanny Escalona ([facility]) Prednisone 20 MG Oral Tablet prednisone 20 mg tablet TAKE ONE TABLET BY MOUTH TWICE DAILY FOR FIVE DAYS prednisone 20 mg tablet TAKE ONE TABLET BY MOUTH TWICE DAILY FOR FIVE DAYS completed pr ednisone 20 MG Oral Tablet BRI ([facility]) cetirizine hydrochloride 10 MG Oral Tablet cetirizine 10 mg tablet cetirizine 10 mg tablet completed cetirizine h ydrochloride 10 MG Oral Tablet BRI ([facility]) 12 HR dextromethorphan polistirex 6 MG/M L Extended Release Suspension Cough DM ER 30 mg/5 mL oral suspension,extended release TAKE FIVE MILLILITERS BY MOUTH EVERY 12 HOURS FOR 10 DAYS Cough DM ER 30 mg/5 mL oral suspension,e xtended release TAKE FIVE MILLILITERS BY MOUTH EVERY 12 HOURS FOR 10 DAYS completed 12 HR dextromethorph an polistirex 6 MG/ML Extended Release Suspension BRI ([facility]) Insurance Providers Payer name Policy type / Coverage type Policy ID Covered democrat ID Covered democrat's relationship to leonard Policy Leonard Plan Information [facility] COMMUNITY [facility]AN [facility] [id number] SP [id number] Managed Care [facility] Community Plan P [id number] S [id number] Medicaid S [id number] S [id number] Medicaid P [id number] S [id number] [facility] O [id number] S [id number] [facility] COMMUNITY [facility]AN [facility] [id number] SP [id number] MEDICAID [id number] SP [id number] Medicaid [place] Self MEDICAID W [id number] S [id number] MEDICAID M [id number] Self [id number] MEDICAID W [id number] S [id number] MEDICAID M [id number] S [id number] Problems, Conditions, and Diagnoses Code Display Name Description Problem Type Effective Dates Data Source(s) F10.229 Alcohol dependence with intoxication, un specified Alcohol Intoxication, With alcohol use disorder, Moderate or Severe Condition 05/21/20 20 12:00:00 AM EST [facility] ([facility]) F12.20 Cannabis dependence, uncomplicated Cannabis Use Disorder, Moderate Condition 05/21/2020 12:00:00 AM EST [facility] ([facility]) F15.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, uncomplicate d Stimulant Use Disorder, Severe: Other or unspecified stimulant Condition 05/21/2020 12:00:00 AM EST [facility] ([facility]) F17.200 Nicotine dependence, unspecified, uncomp licated Tobacco Use Disorder, Moderate Condition 05/21/2020 12:00:00 AM EST [facility] ([facility]) F43.10 Post-traumatic stress disorder, unspecif ied Posttraumatic Stress Disorder (includes Posttraumatic Stress Disorder for Children 6 Years and Younger) Condition 05/21/2020 12:00:00 AM EST [facility] ([facility]) [id number] Clinical finding Clinical Finding Problem 03/08/2020 05 :21:31 PM EDT [facility] ([facility]) [id number] Herpesvirus infection Herpesvirus Infection Problem 03/08/2020 05:21:31 PM EDT [facility] ([facility]) [id number] Clinical finding Clinical Finding Problem 03/08/2020 05 :21:31 PM EDT [facility] ([facility]) [id number] Herpesvirus infection Herpesvirus Infection Problem 03/08/2020 05:21:31 PM EDT [facility] ([facility]) 530.81 Gastro-esophageal reflux disease without esophagitis Gastro-esophageal reflux disease without esophagitis 03/07/2020 09:47:03 AM ED T [facility] F32.9 Major depressive disorder, single episod e, unspecified Unspecified depressive Disorder Condition 02/17/2020 12:00:00 AM EDT [facility] ([facility]) F41.9 Anxiety disorder, unspecified Unspecified Anxiety Diso rder Condition 02/17/2020 12:00:00 AM EDT [facility] ([facility]) Surgeries/Procedures Procedure Description Date Indications Data Source(s) Extended Individual Psychotherapy - 45 min 05/21/2020 12:00:00 AM EST - 05/21/2020 12:00:00 AM EST [facility] ([facility]) Extended Individual Psychotherapy - 45 min 0 12:00:00 AM EST [facility] ([facility]) Extended Individual Psychotherapy - 45 min 05/14/2020 12:00:00 AM EST - 05/14/2020 12:00:00 AM EST [facility] ([facility]) Extended Individual Psychotherapy - 45 min 0 12:00:00 AM EST [facility] ([facility]) Brief Individual Psychotherapy - 30 min 05/10/2020 12:00:00 AM EST - 05/10/2020 12:00:00 AM EST [facility] ([facility]) Brief Individual Psychotherapy - 30 min 05/10/2020 12: 00:00 AM EST [facility] ([facility]) MHC Telemed E/M Lvl 3--Est pt 05/10/2020 12:00:00 AM EST - 05/10/2020 12:00:00 AM EST [facility] ([facility]) Telemed A/O 30" 05/10/2020 12:00:00 AM EST [facility] ([facility]) MHC Telemed E/M Lvl 3--Est pt 05/10/2020 12:00:[address] [facility] ([facility]) Extended Individual Psychotherapy - 45 min 05/07/2020 12:00:00 AM EST - 05/07/2020 12:00:00 AM EST [facility] ([facility]) Extended Individual Psychotherapy - 45 min 0 12:00:00 AM EST [facility] ([facility]) Extended Individual Psychotherapy - 45 min 04/30/2020 12:00:00 AM EST - 04/30/2020 12:00:00 AM EST [facility] ([facility]) Extended Individual Psychotherapy - 45 min 0 12:00:00 AM EST [facility] ([facility]) MHC Telemed E/M Lvl 3--Est pt 04/27/2020 12:00:00 AM EST - 04/27/2020 12:00:00 AM EST [facility] ([facility]) MHC Telemed E/M Lvl 3--Est pt 04/27/2020 12:00:[address] [facility] ([facility]) Extended Individual Psychotherapy - 45 min 04/23/2020 12:00:00 AM EST - 04/23/2020 12:00:00 AM EST [facility] ([facility]) Extended Individual Psychotherapy - 45 min 0 12:00:00 AM EST [facility] ([facility]) [id number]"Psychotherapy 0 12:00:00 AM EST - 04/16/2020 12:00:00 AM EST [facility] ([facility]) [id number]"Psychotherapy 04/16/2020 12:00:00 AM EST [facility] ([facility]) Extended Individual Psychotherapy - 45 min 04/03/2020 12:00:00 AM EST - 04/03/2020 12:00:00 AM EST [facility] ([facility]) Extended Individual Psychotherapy - 45 min 0 12:00:00 AM EST [facility] ([facility]) MHC Telemed E/M Lvl 3--Est pt 03/30/2020 12:00:00 AM EST - 03/30/2020 12:00:00 AM EST [facility] ([facility]) Telemed A/O 30" 03/30/2020 12:00:00 AM EST [facility] ([facility]) MHC Telemed E/M Lvl 3--Est pt 03/30/2020 12:00:[address] [facility] ([facility]) Extended Individual Psychotherapy - 45 min 03/28/2020 12:00:00 AM EST - 03/28/2020 12:00:00 AM EST [facility] ([facility]) Extended Individual Psychotherapy - 45 min 0 12:00:00 AM EST [facility] ([facility]) MHC Telemed E/M Lvl 3--Est pt 03/09/2020 12:00:00 AM EDT - 03/09/2020 12:00:00 AM EDT [facility] ([facility]) Telemed A/O 30" 03/09/2020 12:00:00 AM EDT [facility] ([facility]) MHC Telemed E/M Lvl 3--Est pt 03/09/2020 12:00:00 AM E DT [facility] ([facility]) Extended Individual Psychotherapy - 45 min 03/08/2020 12:00:00 AM EDT - 03/08/2020 12:00:00 AM EDT [facility] ([facility]) Extended Individual Psychotherapy - 45 min 0 12:00:00 AM EDT [facility] ([facility]) Telemed Diagnostic Eval 02/17/2020 12:00 :00 AM EDT - 02/17/2020 12:00:00 AM EDT [facility] ([facility]) Telemed Diagnostic Eval 02/17/2020 12:00:00 AM EDT [facility] ([facility]) Psychiatric Diagnostic Evaluation (Non-Medical) 01/31/2020 12:00:00 AM EDT - 01/31/2020 12:00:00 AM EDT [facility] ([facility]) Psychiatric Diagnostic Evaluation (Non-Medical) 2019 12:00:00 AM EDT [facility] ([facility]) Results ID Date Data Source [id number] 04/04/2020 09:30:00 AM EST [facility]) Name Value Range Interpretation Code Description Data Melida rce(s) Supporting Document(s) Hemoglobin A1c/Hemoglobin.total in Blood 6.4 % normal Hemoglobin a1C [facility]) estimated average glucose 137 mg/dL 60-110 Above high norm al Estimated Average Glucose [facility]) ID Date Data Source [id number] 04/04/2020 09:30:00 AM [facility] Name Value Range Interpretation Code Description Data Melida rce(s) Supporting Document(s) thyroid stimulating hormone 1.880 uIU/mL 0.358-3.740 normal Thyroid Stimulating Hormone [facility]) free T4 1.52 NG/dL 0.76-1.46 Above high normal Free T4 [facility]) ID Date Data Source [id number] 04/04/2020 09:30:00 AM EST [facility] Name Value Range Interpretation Code Description Data Melida rce(s) Supporting Document(s) cholesterol level 150 mg/dL <200 normal Cholesterol Level [facility]) triglycerides level 67 mg/dL <150 normal Triglycerides Le kristie BRI ([facility]) non-HDL-C 97 mg/dL normal Non-hdl-c [facility] ([facility]) HDL cholesterol 53 mg/dL >40 normal HDL Cholesterol ATHE ([facility]) cholesterol risk ratio <5 normal Cholesterol R isk Ratio [facility] ([facility]) Cholesterol in LDL [Mass/volume] in Serum or Plasma 84 mg/dL <1 00 normal LDL Cholesterol [facility] ([facility]) ID Date Data Source [id number] 04/04/2020 09:30:00 AM EST [facility] ([facility]) Name Value Range Interpretation Code Description Data Melida rce(s) Supporting Document(s) glucose, fasting 201 mg/dL 70-100 Above high normal Glucose, Fas ting B[facility] ([facility]) glomerular filtration rate > 60.0 >60 normal Glomerula r Filtration Rate [facility] ([facility]) creatinine for GFR 0.73 mg/dL 0.55-1.30 normal Creatinine for GF R [facility] ([facility]) blood urea nitrogen 10 mg/dL 7-18 normal Blood Urea Nitro gen [facility] ([facility]) sodium level 137 mEq/L 136-145 normal Sodium Level [facility] ([facility]) anion gap 6 mEq/L 8-16 Below low normal Anion Gap B[facility] ( [facility]) potassium serum 4.3 mEq/L 3.5-5.1 normal Potassium Serum ATHE NA ([facility]) carbon dioxide level 26 mEq/L 21-32 normal Carbon Dioxide Level [facility] ([facility]) chloride level 105 mEq/L 98-107 normal Chloride Level [facility] ([facility]) ALT/SGPT 1290 U/L 12-78 Above high normal ALT/SGPT [facility] ([facility]) calcium level 8.8 mg/dL 8.5-10.1 normal Calcium Level [facility] ( [facility]) bilirubin,total 0.8 mg/dL 0.2-1.0 normal Bilirubin,total ATHE ([facility]) AST/SGOT 758 U/L 7-37 Above high normal AST/SGOT [facility] ([facility]) alkaline phosphatase 100 U/L 45-117 normal Alkaline Phosph atase [facility] ([facility]) total protein 7.3 gm/dL 6.4-8.2 normal Total Protein [facility] ( [facility]) albumin/globulin ratio 1.2-2.2 Below low normal Albumin /globulin Ratio B[facility] ([facility]) albumin 3.5 gm/dL 3.2-5.2 normal Albumin [facility] ([facility]) ID Date Data Source [id number] 03/07/2020 08:58:20 AM EDT [facility] Measurements & CalculationsHeight: 63 inches (5 ft. 3 in.) 160.02 cm Weight: 292.8 pounds 133.09 kg Body Mass Index (BMI): 52.05BMI Interpretation: Morbidly ObeseBody Surface Area (BSA): 2.28Weight Management Education Done (Nutrition/Physical Activity)Vital SignsTemperature: 96.0FPulse Rate: 72 beats/minuteRespiratory Rate: 16 respirations/minuteBlood Pressure: 141/88 O2 Saturation: 99% Vital Signs performed by: Letha Perez MA, March 07, 2020 9:06 AMInitial Intake Information [...] during this visit, including review of any ebof-lqn-lebbyob medications, herbal therapies, and/or supplements.Allergy ReviewAllergy List [...] needs referral, [facility]: Denies chills, dizziness, fatigue, [...] Problems:Added: Gastro-esophageal reflux disease without esophagitis (ICD-530.81) (TLX62-G41.9) Assessment: Instructions: Start omeprazole.Assessed:BACK PAIN (ICD-724.5) (PNU66-Z25.9) Assessment: Instructions: Chronic, stable and well controlled Marijuana seems to be helping.We discussed the possibility of PT. She has had this in the past and this has made it worse.DIABETES, TYPE 2 (ICD-250.00) (DEQ74-P59.9) Assessment: Instructions: Encouraged diet, exercise and weight [...] Known Allergies (updated 08/02/2014) Orders:COMP METABOLIC PANEL [CPT-90998] HgBA1c [CPT-08269] LIPID PANEL [CPT-17320] TSH [CPT- 14565] T-4 free [CPT-31112] Adult - Ofc Vst, EST, Level III [CPT-56218] Follow- Up Return to clinic: 3 months for follow upAdditional Follow-Up: Fasting blood tests over the next 1-2 weeks. Name Value Range Interpretation Code Description Data Melida rce(s) Supporting Document(s) ID Date Data Source [id number] 02/19/2020 03:16:00 PM EDT [facility] Name Value Range Interpretation Code Description Data Melida rce(s) Supporting Document(s) SARS coronavirus 2 RNA [facility] This lab was ordered by [facility] and reported by [facility]. ID Date Data Source [id number] 02/13/2020 12:00:00 AM EDT [facility] Name Value Range Interpretation Code Description Data Melida rce(s) Supporting Document(s) SARS coronavirus 2 RNA [Presence] in Res piratory specimen by JOY with probe detection [facility] This lab was ordered by Liseth Burr and reported by [facility] [facility]. ID Date Data Source [id number] 02/07/2020 12:00:00 AM EDT [facility] Angelica Tovar Patient Name: BRET MCKEONIESpinal Disc Regeneration Date of : [address] Date of Exam: 02/07/2020CYDNEY Burr [id number]#: Fax: [phone] EXAM: LUMBOSACRAL SPINE (4 VIEWS)CLINICAL [...] rce(s) Supporting Document(s) ID Date Data Source [id number] 02/07/2020 12:00:00 AM EDT [facility] Angelica Tovar Patient Name: BRET MCKEONIESpinal Disc Regeneration Date of : [facility] Date of Exam: 02/07/2020CYDNEY Burr [id number]#: Fax: [phone] EXAM: THORACIC SPINE (3 VIEW) XRAYCLINICAL INFORMATION: Atraumatic back pain.AP and lateral views.The disc spaces are symmetric and relatively well maintained. There is noacute fracture or destructive osseous lesion.There is minimal anterior lipping seen throughout the thoracic spine butparticularly at the T7-8 level.CAREY Michael/Thaddeus you for referring NAIDA MCKEON to our office. Electronically Signed - FARNAZ BERRY DO 02/08/20 16:32 Name Value Range Interpretation Code Description Data Melida rce(s) Supporting Document(s) ID Date Data Source [id number] 02/07/2020 12:00:00 AM EDT [facility] Imaging Angelica Tovar Patient Name: BRET MCKEONIESpinal Disc Regeneration Date of : [address] Date of Exam: 02/07/2020CYDNEY Burr [id number]#: Fax: [phone] EXAM: CERVICAL SPINE COMPLETE XRAYCLINICAL [...] day smoker [facility] ([facility]) Smoking 05/14/2020 12:00:00 AM EST Current every day smoker co mpleted Current every day smoker [facility] ([facility]) Smoking 05/10/2020 12:00:00 AM EST Current every day smoker co mpleted Current every day smoker [facility] ([facility]) Smoking 05/07/2020 12:00:00 AM EST Current every day smoker co mpleted Current every day smoker [facility] ([facility]) Smoking 04/30/2020 12:00:00 AM EST Current every day smoker co mpleted Current every day smoker [facility] ([facility]) Smoking 04/27/2020 12:00:00 AM EST Current every day smoker co mpleted Current every day smoker [facility] ([facility]) Smoking 04/23/2020 12:00:00 AM EST Current every day smoker co mpleted Current every day smoker [facility] ([facility]) Smoking 04/16/2020 12:00:00 AM EST Current every day smoker co mpleted Current every day smoker [facility] ([facility]) Smoking 04/03/2020 12:00:00 AM EST Current every day smoker co mpleted Current every day smoker [facility] ([facility]) Smoking 03/30/2020 12:00:00 AM EST Current every day smoker co mpleted Current every day smoker [facility] ([facility]) Smoking 03/28/2020 12:00:00 AM EST Current every day smoker co mpleted Current every day smoker [facility] ([facility]) Smoking 03/09/2020 12:00:00 AM EDT Current every day smoker co mpleted Current every day smoker [facility] ([facility]) Smoking 03/08/2020 12:00:00 AM EDT Current every day smoker co mpleted Current every day smoker [facility] ([facility]) Smoking 02/17/2020 12:00:00 AM EDT Current every day smoker co mpleted Current every day smoker [facility] ([facility]) Smoking 01/31/2020 12:00:00 AM EDT Current every day smoker co mpleted Current every day smoker [facility] ([facility]) Vital Signs ID Date Data Source UNK Name Value Range Interpretation Code Description Data Source(s) Diastolic blood pressure 0 mm[Hg] Normal (applies to non-numeric results) 0 mm[Hg] [facility] ([facility]) Systolic blood pressure 0 mm[Hg] Normal (applies t o non-numeric results) 0 mm[Hg] [facility] ([facility]) Body mass index (BMI) [Ratio] 0.00 kg/m2 No rmal (applies to non-numeric results) 0.00 kg/m2 [facility] ([facility]) Body weight Measured 0.00 lbs Normal (applies to n on-numeric results) 0.00 lbs [facility] ([facility]) Body height 0.00 in Normal (applies to non-numeric resu lts) 0.00 in [facility] ([facility]) Diastolic blood pressure 0 mm[Hg] Normal (applies to non-numeric results) 0 mm[Hg] [facility] ([facility]) Systolic blood pressure 0 mm[Hg] Normal (applies t o non-numeric results) 0 mm[Hg] [facility] ([facility]) Body mass index (BMI) [Ratio] 0.00 kg/m2 No rmal (applies to non-numeric results) 0.00 kg/m2 [facility] ([facility]) Body weight Measured 0.00 lbs Normal (applies to n on-numeric results) 0.00 lbs [facility] Body height 0.00 in Normal (applies to non-numeric resu lts) 0.00 in [facility] ([facility]) Body weight 4560 [oz_av] 4560 [oz_av] BRI ([facility]) Systolic blood pressure 121 mm[Hg] 121 mm[Hg] A THENA ([facility]) Body mass index (BMI) [Ratio] 50.5 kg/m2 50.5 k g/m2 B[facility] ([facility]) Body height 63 [in_i] 63 [in_i] B[facility] ([facility]) Diastolic blood pressure 86 mm[Hg] 86 mm[Hg] [facility] ([facility]) Diastolic blood pressure 0 mm[Hg] Normal (applies to non-numeric results) 0 mm[Hg] [facility] ([facility]) Systolic blood pressure 0 mm[Hg] Normal (applies t o non-numeric results) 0 mm[Hg] [facility] ([facility]) Body mass index (BMI) [Ratio] 0.00 kg/m2 No rmal (applies to non-numeric results) 0.00 kg/m2 [facility] ([facility]) Body weight Measured 0.00 lbs Normal (applies to n on-numeric results) 0.00 lbs [facility] ([facility]) Body height 0.00 in Normal (applies to non-numeric resu lts) 0.00 in [facility] ([facility]) Diastolic blood pressure 0 mm[Hg] Normal (applies to non-numeric results) 0 mm[Hg] [facility] ([facility]) Systolic blood pressure 0 mm[Hg] Normal (applies t o non-numeric results) 0 mm[Hg] [facility] ([facility]) Body mass index (BMI) [Ratio] 0.00 kg/m2 No rmal (applies to non-numeric results) 0.00 kg/m2 [facility] ([facility]) Body weight Measured 0.00 lbs Normal (applies to n on-numeric results) 0.00 lbs [facility] ([facility]) Body height 0.00 in Normal (applies to non-numeric resu lts) 0.00 in [facility] ([facility]) Diastolic blood pressure 0 mm[Hg] Normal (applies to non-numeric results) 0 mm[Hg] [facility] ([facility]) Systolic blood pressure 0 mm[Hg] Normal (applies t o non-numeric results) 0 mm[Hg] [facility] ([facility]) Body mass index (BMI) [Ratio] 42.51 kg/m2 No rmal (applies to non-numeric results) 42.51 kg/m2 [facility] ([facility]) Body weight Measured 240.00 lbs Normal (applies to n on-numeric results) 240.00 lbs [facility] ([facility]) Body height 63.00 in Normal (applies to non-numeric resu lts) 63.00 in [facility] ([facility]) Patient Treatment Plan of Care Planned Activity Planned Date Details Description Data Source (s) Prednisone 20 MG Oral Tablet BIR ([facility]) 12 HR dextromethorphan polistirex 6 MG/ML Extended Release Suspensi on BRI ([facility]) cetirizine hydrochloride 10 MG Oral Tablet BRI ([facility])
[2020-06-06 18:28] LABS: BASO # 0.1 10^3/uL (0.0-0.2); BASO % 0.6 % (0.0-1.0); EOS # 0.3 10^3/uL (0.0-0.5); EOS % 3.2 % (0.0-3.0); HEMATOCRIT 44.2 % (36.0-47.0); HEMOGLOBIN 14.7 g/dl (12.0-15.5); LYMPH # 2.8 10^3/uL (1.5-5.0); LYMPH % 33.6 % (24.0-44.0); MEAN CORPUSCULAR HEMOGLOBIN 31.3 pg (27.0-33.0); MEAN CORPUSCULAR HGB CONC 33.3 g/dl (32.0-36.5); MEAN CORPUSCULAR VOLUME 94.2 fl (80.0-96.0); MONO # 0.7 10^3/uL (0.0-0.8); NEUTROPHILS # 4.4 10^3/uL (1.5-8.5); NEUTROPHILS % 53.2 % (36.0-66.0); PLATELET COUNT, AUTOMATED 189 10^3/uL (150-450); RED BLOOD COUNT 4.69 10^6/uL (4.00-5.40); WHITE BLOOD COUNT 8.3 10^3/uL (4.0-10.0)
[2020-06-06 18:39] LABS: INR 1.01; PROTHROMBIN TIME 13.5 SECONDS (12.5-14.3)
[2020-06-06 18:40] LABS: PARTIAL THROMBOPLASTIN TIME 27.3 SECONDS (24.2-38.5)
[2020-06-06 18:42] LABS: D-DIMER QUANT 275.58 ng/ml (<500)
[2020-06-06] MEDS ORDERED: NS 1,000 ML IV ONE ×2 (18:45→22:15)
[2020-06-06 18:57] LABS: CK-MB VALUE MASS < 1.0 NG/ML (<3.6); CPK CREATINE PHOSPHOKINASE 66 U/L (26-192); MB/CK RELATIVE INDEX 1.52 (< OR =4); TROPONIN I < 0.02 NG/ML (< 0.10)
[2020-06-06 18:58] LABS: HCG, SERUM QUALITATIVE NEGATIVE (NEGATIVE)
[2020-06-06 19:00] LABS: ALBUMIN 3.9 GM/DL (3.2-5.2); ALT/SGPT 214 U/L (12-78); BILIRUBIN,DIRECT 0.2 MG/DL (0.0-0.2); BILIRUBIN,TOTAL 0.6 MG/DL (0.2-1.0); BLOOD UREA NITROGEN 7 MG/DL (7-18); CALCIUM LEVEL 9.1 MG/DL (8.5-10.1); CARBON DIOXIDE LEVEL 21 MEQ/L (21-32); CHLORIDE LEVEL 100 MEQ/L (98-107); CREATININE FOR GFR 0.74 MG/DL (0.55-1.30); GLOMERULAR FILTRATION RATE > 60.0 (>60); GLUCOSE, FASTING 342 MG/DL (70-100); LIPASE 275 U/L (73-393); POTASSIUM SERUM 3.8 MEQ/L (3.5-5.1); SODIUM LEVEL 136 MEQ/L (136-145); TOTAL PROTEIN 7.9 GM/DL (6.4-8.2)
[2020-06-06] MEDS ORDERED: ISOVUE-370 76% 100ML VIAL As Ordered ONE (19:26)
--- NOTE | 2020-06-06 19:35 | REP ---
INDICATION: cough, shortness of breath COMPARISON: 09/27/2009. TECHNIQUE: PA/Lateral FINDINGS: Lungs: Clear, no infiltrate. Heart: Normal in size. Mediastinum: Mediastinal silhouette unremarkable. Pleural angles: Unremarkable.. Bones and soft tissues: Unremarkable. IMPRESSION: No acute pulmonary disease. <Electronically signed by Michele Dove > 06/06/20 193
--- NOTE | 2020-06-06 21:50 | REPVR ---
PROCEDURE INFORMATION: Exam: CT Angiography Chest With Contrast Exam date and time: 06/06/2020 9:03 PM Age: 30 years old Clinical indication: Shortness of breath; Additional info: Shortness of breath RO pe TECHNIQUE: Imaging protocol: Computed tomographic angiography of the chest with intravenous contrast. 3D rendering (Not supervised by radiologist): MIP and/or 3D reconstructed images were created by the technologist. Radiation optimization: All CT scans at this facility use at least one of these dose optimization techniques: automated exposure control; mA and/or kV adjustment per patient size (includes targeted exams where dose is matched to clinical indication); or iterative reconstruction. Contrast material: ISOVUE 370; Contrast volume: 100 ml; Contrast route: INTRAVENOUS (IV); COMPARISON: OK Chest, 2 view PA, Lat 06/06/2020 7:19 PM FINDINGS: Pulmonary arteries: Normal. No pulmonary emboli. Aorta: Unremarkable. No aortic aneurysm. No aortic dissection. Lungs: Unremarkable. No consolidation. No masses. Pleural space: Unremarkable. No pneumothorax. No pleural effusion. Heart: Unremarkable. No cardiomegaly. No pericardial effusion. Lymph nodes: Unremarkable. No enlarged lymph nodes. Bones/joints: Unremarkable. No acute fracture. Soft tissues: Unremarkable. IMPRESSION: No acute findings. Electronically signed by: Barrera Cabrales On 06/06/2020 21:50:24 PM
--- NOTE | 2020-06-06 21:55 | REPVR ---
PROCEDURE INFORMATION: Exam: CT Maxillofacial With Contrast Exam date and time: 06/06/2020 9:03 PM Age: 30 years old Clinical indication: Other: [place]en red area, concern for abscess TECHNIQUE: Imaging protocol: Computed tomography images of the face with intravenous contrast. Radiation optimization: All CT scans at this facility use at least one of these dose optimization techniques: automated exposure control; mA and/or kV adjustment per patient size (includes targeted exams where dose is matched to clinical indication); or iterative reconstruction. Contrast material: ISOVUE 370; Contrast volume: 100 ml; Contrast route: INTRAVENOUS (IV); COMPARISON: No relevant prior studies available. FINDINGS: Orbits: Orbits are normal. Globes are unremarkable. Bones/joints: No acute fracture. Paranasal sinuses: Mild mucosal thickening in the right maxillary sinus. Soft tissues: There is a 2.6 x 2.1 cm subcutaneous collection with some peripheral enhancement in the left facial soft tissues. Mild associated skin thickening and surrounding soft tissue edema are present. No subcutaneous gas or foreign bodies. No other fluid collections are seen. Brain: There is a geographic area of low attenuation in the left parietal lobe extending to the periventricular white matter measuring approximately 2.1 x 5.8 cm. Lymph nodes: Scattered bilateral upper cervical lymph nodes measuring up to 1.6 cm. Submandibular/Parotid glands: There is a small amount of air in the left parotid duct. Left parotid gland is otherwise unremarkable. No parotid inflammatory changes or masses. Remaining salivary glands are unremarkable. Other findings: The exam is degraded by patient motion artifact. IMPRESSION: 1. Motion limited exam. 2. Left facial subcutaneous collection with mild enhancement, possibly an infected sebaceous cyst or small abscess. 3. Small amount of air in the left parotid duct of uncertain significance. No parotid duct dilation or calculi. No parotid inflammatory changes. 4. Geographic area of low attenuation in the left parietal lobe of uncertain significance. Finding may be a chronic infarct but is incompletely imaged. Consider brain MRI follow-up if not previously evaluated. Electronically signed by: Carlos Zimmer On 06/06/2020 21:54:44 PM
[2020-06-06 22:32] LABS: HEMOGLOBIN A1c 12.3 %
[2020-06-06 22:40] LABS: VENOUS BASE EXCESS -7.9 (-2.0-2.0); VENOUS HCO3 17.8 MEQ/L (23.0-27.0); VENOUS O2 SATURATION 99.4 % (60.0-80.0); VENOUS PARTIAL PRESSURE CO2 37.2 mmHg (38.0-50.0); VENOUS PARTIAL PRESSURE O2 217.1 mmHg (30.0-50.0); VENOUS PH 7.298 UNITS (7.330-7.430); VENOUS STANDARD HCO3 18.2 MEQ/L
[2020-06-06 22:54] LABS: ACETONE/KETONE > 46.00 MG/DL (<2.81)
[2020-06-06 23:37] LABS: HEPATITIS B SURFACE ANTIGEN NEGATIVE (NEGATIVE)
[2020-06-07 00:04] LABS: HEPATITIS B CORE ANTIBODY IGM NEGATIVE (NEGATIVE)
[2020-06-07 00:07] LABS: HEPATITIS A ANTIBODY IGM NEGATIVE (NEGATIVE)
[2020-06-07 00:21] LABS: HEPATITIS C VIRUS ABY INDEX > 11.0 INDEX (<0.8)
[2020-06-07] MEDS ORDERED: NYSTATIN 100,000 UNITS/GM TOPICAL PWD 15 GM TOP STA (00:29)
[2020-06-07] MEDS ORDERED: NYSTATIN 500,000 U/5 ML SUSP UDC PO STA (00:29)
--- NOTE | 2020-06-07 00:51 | ECGEPIP ---
[facility] - ED Test Date: 2020-06-06 Pat Name: NAIDA MCKEON Department: Room: - Gender: Female Recreation Officer: martine : 1990 Requested By: MANNY Conway PA-C Order Number: [id number] Reading MD: Rusty Corona Measurements Intervals [place] Rate: 100 P: 37 ME: 160 QRS: 12 QRSD: 106 T: 1 QT: 383 QTc: 496 Interpretive Statements SINUS TACHYCARDIA POOR R WAVE PROGRESSION NO PRIORS FOR COMPARISON Electronically Signed on 06-07-2020 0:51:14 EST by Rusty Corona
[2020-06-07] MEDS ORDERED: NYST50SS PO (01:58)
[2020-06-07] MEDS ORDERED: METF10004 PO (01:58)
[2020-06-07] MEDS ORDERED: NYST1POW9 TOP (01:58)
[2020-06-07] MEDS ORDERED: AUGM875T28 PO (01:58)
[2020-06-07] MEDS ORDERED: AUGMENTIN 875 MG TAB PO ONE (02:00)
[2020-06-07] MEDS ORDERED: metFORMIN (GLUCOPHAGE) 1000 MG TABLET PO ONE (02:00)
[2020-06-07 02:11] VITALS: BP 136/79
--- NOTE | 2020-06-09 06:50 | ED PDOC ---
Post-Departure Follow-Up ct max fac fazxed to dr colin for fu Viki Guillory MD Jun 09, 2020 06:50
== END 2020-06-07 02:17 | disposition left against medical advice (07) ==
LOC: M ED 15:30
DX: Z53.9 Procedure and treatment not carried out, unspecified reason (principal); E11.10 Type 2 diabetes mellitus with ketoacidosis without coma; L72.3 Sebaceous cyst; B37.0 Candidal stomatitis; B37.2 Candidiasis of skin and nail; R11.2 Nausea with vomiting, unspecified; R00.0 Tachycardia, unspecified; Z79.84 Long term (current) use of oral hypoglycemic drugs; Z79.899 Other long term (current) drug therapy
CPT/HCPCS: 36600; 70487; 71046; 71275; 80048; 80076; 81001; 82010; 82550; 82553; 82803; 83036; 83605; 83690; 83930; 84703; 85025; 85379; 85610; 85730; 86705; 86709; 86803; 87040; 87086; 87340; 87486; 87521; 87581; 87633; 87798; 87880; 93005; 93041; 96360; 96361; 99285; Q9967

== ENCOUNTER → 2020-06-14 | Outpatient (REF) | payer OTHER ==
[~2020-06-14] MED LIST changes: +AUGM875T28 PO; +EFFE150C2 PO; +INDE60CA4 PO; +METF10004 PO; +NYST1POW9 TOP; +NYST50SS PO; +OMEP-218 PO; +SUBO8MIS SL; +TRAZ-252
[2020-06-14 16:05] LABS: HEPATITIS B SURFACE ANTIBODY POSITIVE (POSITIVE); HIV 1&2 SCREEN CENTAUR NEGATIVE (NEGATIVE)
[2020-06-23 16:13] LABS: HEPATITIS A IgG TOTAL Negative (Negative); HEPATITIS B CORE ANTIBODY IGG Negative (Negative); HEPATITIS C QUANTITATION <15 IU/mL (.)
== END ==
LOC: M SFHCPLAZ 10:38
PROVIDERS: ATTEND Internal Medicine Infectious Disease
DX: B18.2 Chronic viral hepatitis C (principal)

== ENCOUNTER → 2020-06-15 | Outpatient (REF) | payer OTHER ==
[2020-06-15 17:44] LABS: BASO % 0.6 % (0.0-1.0); EOS # 0.3 10^3/uL (0.0-0.5); EOS % 4.1 % (0.0-3.0); HEMATOCRIT 43.2 % (36.0-47.0); HEMOGLOBIN 14.6 g/dl (12.0-15.5); LYMPH # 1.7 10^3/uL (1.5-5.0); LYMPH % 24.8 % (24.0-44.0); MEAN CORPUSCULAR HEMOGLOBIN 31.9 pg (27.0-33.0); MEAN CORPUSCULAR HGB CONC 33.8 g/dl (32.0-36.5); MEAN CORPUSCULAR VOLUME 94.5 fl (80.0-96.0); MONO # 0.6 10^3/uL (0.0-0.8); MONO % 9.1 % (0.0-5.0); NEUTROPHILS # 4.2 10^3/uL (1.5-8.5); NEUTROPHILS % 61.1 % (36.0-66.0); PLATELET COUNT, AUTOMATED 202 10^3/uL (150-450); RED BLOOD COUNT 4.57 10^6/uL (4.00-5.40); WHITE BLOOD COUNT 6.8 10^3/uL (4.0-10.0)
[2020-06-15 17:57] LABS: HEMOGLOBIN A1c 12.2 %
[2020-06-15 18:04] LABS: ALBUMIN 3.6 GM/DL (3.2-5.2); ALT/SGPT 200 U/L (12-78); BILIRUBIN,TOTAL 0.6 MG/DL (0.2-1.0); BLOOD UREA NITROGEN 6 MG/DL (7-18); CALCIUM LEVEL 9.7 MG/DL (8.5-10.1); CARBON DIOXIDE LEVEL 30 MEQ/L (21-32); CHLORIDE LEVEL 95 MEQ/L (98-107); CHOLESTEROL LEVEL 171 MG/DL (<200); CHOLESTEROL RISK RATIO 5.029 (<5); CREATININE FOR GFR 0.71 MG/DL (0.55-1.30); GLOMERULAR FILTRATION RATE > 60.0 (>60); GLUCOSE, FASTING 370 MG/DL (70-100); HDL CHOLESTEROL 34 MG/DL (>40); LDL CHOLESTEROL 91 MG/DL (<100); NON-HDL-C 137 MG/DL; POTASSIUM SERUM 3.9 MEQ/L (3.5-5.1); SODIUM LEVEL 135 MEQ/L (136-145); TOTAL PROTEIN 7.4 GM/DL (6.4-8.2); TRIGLYCERIDES LEVEL 230 MG/DL (<150)
[2020-06-15 18:14] LABS: TOTAL 25(OH) VITAMIN D 20.5 NG/ML (30.0-100.0)
== END ==
LOC: M LAB REF 16:45
PROVIDERS: ATTEND Nurse Practitioner Family
DX: E11.9 Type 2 diabetes mellitus without complications (principal)

== ENCOUNTER → 2020-07-12 | Outpatient (REF) | payer OTHER ==
[2020-07-12 16:01] LABS: ALBUMIN 3.9 GM/DL (3.2-5.2); BILIRUBIN,DIRECT 0.1 MG/DL (0.0-0.2); BILIRUBIN,TOTAL 0.3 MG/DL (0.2-1.0); TOTAL PROTEIN 7.7 GM/DL (6.4-8.2)
[2020-07-14 21:20] LABS: HEPATITIS C QUANTITATION HCV Not Detected IU/mL (.)
== END ==
LOC: M PLALAB 13:23
PROVIDERS: ATTEND Internal Medicine Infectious Disease
DX: B18.2 Chronic viral hepatitis C (principal)

== ENCOUNTER → 2020-08-03 | Outpatient (REF) | payer OTHER ==
[2020-08-03 11:28] LABS: BILIRUBIN,DIRECT 0.2 MG/DL (0.0-0.2); BILIRUBIN,TOTAL 0.5 MG/DL (0.2-1.0); PERCENT SATURATION 24.7 % (13.2-45.0)
[2020-08-04 23:07] LABS: ANTI-SMOOTH MUSCLE ANTIBODY 5 Units (0-19); ANTINUCLEAR ANTIBODIES DIRECT Negative (Negative); CERULOPLASMIN 34.8 mg/dL (19.0-39.0); HEPATITIS C QUANTITATION HCV Not Detected IU/mL (.); LIVER-KIDNEY MICROSOMAL ABY <20.1 Units (0.0-20.0)
== END ==
LOC: M SFHCPLAZ 09:18
PROVIDERS: ATTEND Internal Medicine Infectious Disease
DX: B18.2 Chronic viral hepatitis C (principal); R94.5 Abnormal results of liver function studies

== ENCOUNTER → 2020-08-03 | Outpatient (CLI) | payer OTHER ==
--- NOTE | 2020-08-03 09:50 | REPPI ---
INDICATION: BACK PAIN. COMPARISON: None. TECHNIQUE: AP and lateral views of the thoracic spine. FINDINGS: Alignment and kyphosis maintained. Vertebral bodies are intact. No evidence for acute fracture/compression injury or subluxation. Minimal age-related changes include mild endplate sclerosis with subtle marginal spurring. IMPRESSION: Mild age-related changes. <Electronically signed by Richard Isbell > 08/03/20 0960
--- NOTE | 2020-08-03 09:51 | REPPI ---
INDICATION: PAIN LEFT HIP COMPARISON: None. TECHNIQUE: AP and frog-lateral views of the left hip FINDINGS: Osseous structures, joint spaces, and surrounding soft tissues are normal and age-appropriate. No evidence for acute or healed injury. No overt arthritic changes. IMPRESSION: Age-appropriate left hip radiographs <Electronically signed by Richard Isbell > 08/03/20 0969
--- NOTE | 2020-08-03 09:54 | REPPI ---
INDICATION: BACK PAIN COMPARISON: None. TECHNIQUE: AP, lateral, bilateral oblique, and coned-down views of the lumbar spine. FINDINGS: Oblique views suggest chronic L5 spondylolysis. There is minimal endplate sclerosis and hypertrophic changes at the L5-S1 level. Remainder of the examination is age-appropriate and essentially normal. No acute fracture/compression injury or subluxation. No further significant degenerative spondylosis. IMPRESSION: Findings at the L5-S1 level as noted above. <Electronically signed by Richard Isbell > 08/03/20 0967
--- NOTE | 2020-08-03 09:54 | REPPI ---
INDICATION: NECK PAIN. COMPARISON: None. TECHNIQUE: AP, lateral, open mouth views of the cervical spine FINDINGS: Alignment and lordosis maintained. Vertebral bodies are intact. No acute fracture/compression injury or subluxation. No significant degenerative changes are appreciated. IMPRESSION: Normal age-appropriate cervical spine radiographs. <Electronically signed by Richard Isbell > 08/03/20 0978
== END ==
LOC: M PLAIMG 09:15
PROVIDERS: ATTEND Nurse Practitioner Family
DX: M54.5 Low back pain (principal); M54.2 Cervicalgia; M25.552 Pain in left hip

== ENCOUNTER 2020-08-13 11:28 | Emergency (ER) | payer OTHER ==
[~2020-08-13] VITALS: Ht 160 cm; Wt 134.1 kg
[2020-08-13 13:24] LABS: HEMOGLOBIN 14.8 g/dl (12.0-15.5); MEAN CORPUSCULAR HEMOGLOBIN 31.7 pg (27.0-33.0); MEAN CORPUSCULAR HGB CONC 33.6 g/dl (32.0-36.5); MEAN CORPUSCULAR VOLUME 94.2 fl (80.0-96.0); PLATELET COUNT, AUTOMATED 202 10^3/uL (150-450); RED BLOOD COUNT 4.67 10^6/uL (4.00-5.40); WHITE BLOOD COUNT 11.7 10^3/uL (4.0-10.0)
[2020-08-13 13:52] LABS: AMPHETAMINES LEVEL URINE NEGATIVE (NEGATIVE); BARBITURATES URINE NEGATIVE (NEGATIVE); BENZODIAZEPINES URINE NEGATIVE (NEGATIVE); CANNABINOIDS URINE POSITIVE (NEGATIVE); COCAINE METABOLITE URINE POSITIVE (NEGATIVE); METHADONE URINE NEGATIVE (NEGATIVE); OPIATES URINE NEGATIVE (NEGATIVE); PHENCYCLIDINE URINE NEGATIVE (NEGATIVE)
[2020-08-13 14:05] LABS: ALT/SGPT 44 U/L (12-78); BILIRUBIN,DIRECT 0.2 MG/DL (0.0-0.2); BILIRUBIN,TOTAL 0.7 MG/DL (0.2-1.0); BLOOD UREA NITROGEN 12 MG/DL (7-18); CALCIUM LEVEL 9.4 MG/DL (8.5-10.1); CARBON DIOXIDE LEVEL 25 MEQ/L (21-32); CHLORIDE LEVEL 104 MEQ/L (98-107); CREATININE FOR GFR 0.68 MG/DL (0.55-1.30); GLOMERULAR FILTRATION RATE > 60.0 (>60); GLUCOSE, FASTING 114 MG/DL (70-100); SALICYLATE LEVEL 2.7 MG/DL (5.0-30.0); SODIUM LEVEL 137 MEQ/L (136-145); THYROID STIMULATING HORMONE 0.637 uIU/ML (0.358-3.740); TOTAL PROTEIN 8.1 GM/DL (6.4-8.2)
[2020-08-13 14:06] LABS: ACETAMINOPHEN LEVEL < 2.0 UG/ML (10.0-30.0); ETHYL ALCOHOL (ETHANOL) < 0.003 % (0.000-0.010)
[2020-08-13 16:26] VITALS: BP 125/71
== END 2020-08-13 16:32 | disposition home or self-care (01) ==
LOC: M ED 11:28
DX: F32.9 Major depressive disorder, single episode, unspecified (principal); F19.10 Other psychoactive substance abuse, uncomplicated; E11.9 Type 2 diabetes mellitus without complications; F31.9 Bipolar disorder, unspecified; Z86.19 Personal history of other infectious and parasitic diseases; F11.10 Opioid abuse, uncomplicated; F12.10 Cannabis abuse, uncomplicated; Z79.84 Long term (current) use of oral hypoglycemic drugs; Z79.899 Other long term (current) drug therapy

== ENCOUNTER 2020-10-05 18:09 | Emergency (ER) | payer OTHER ==
[~2020-10-05] VITALS: Ht 160 cm; Wt 109.1 kg
[2020-10-05 18:42] LABS: HEMATOCRIT 41.5 % (36.0-47.0); HEMOGLOBIN 13.4 g/dl (12.0-15.5); MEAN CORPUSCULAR HEMOGLOBIN 30.3 pg (27.0-33.0); MEAN CORPUSCULAR HGB CONC 32.3 g/dl (32.0-36.5); MEAN CORPUSCULAR VOLUME 93.9 fl (80.0-96.0); PLATELET COUNT, AUTOMATED 217 10^3/uL (150-450); RED BLOOD COUNT 4.42 10^6/uL (4.00-5.40); WHITE BLOOD COUNT 8.3 10^3/uL (4.0-10.0)
[2020-10-05 18:59] LABS: AMPHETAMINES LEVEL URINE NEGATIVE (NEGATIVE); BARBITURATES URINE NEGATIVE (NEGATIVE); BENZODIAZEPINES URINE NEGATIVE (NEGATIVE); CANNABINOIDS URINE POSITIVE (NEGATIVE); COCAINE METABOLITE URINE NEGATIVE (NEGATIVE); METHADONE URINE NEGATIVE (NEGATIVE); OPIATES URINE NEGATIVE (NEGATIVE); PHENCYCLIDINE URINE NEGATIVE (NEGATIVE)
[2020-10-05 19:12] LABS: ACETAMINOPHEN LEVEL < 2.0 UG/ML (10.0-30.0); ALBUMIN 3.8 GM/DL (3.2-5.2); ALT/SGPT 37 U/L (12-78); BILIRUBIN,DIRECT < 0.1 MG/DL (0.0-0.2); BILIRUBIN,TOTAL 0.2 MG/DL (0.2-1.0); BLOOD UREA NITROGEN 19 MG/DL (7-18); CALCIUM LEVEL 9.2 MG/DL (8.5-10.1); CARBON DIOXIDE LEVEL 23 MEQ/L (21-32); CHLORIDE LEVEL 111 MEQ/L (98-107); ETHYL ALCOHOL (ETHANOL) 0.113 % (0.000-0.010); GLOMERULAR FILTRATION RATE > 60.0 (>60); GLUCOSE, FASTING 229 MG/DL (70-100); POTASSIUM SERUM 3.6 MEQ/L (3.5-5.1); SALICYLATE LEVEL 1.9 MG/DL (5.0-30.0); SODIUM LEVEL 142 MEQ/L (136-145); THYROID STIMULATING HORMONE 0.864 uIU/ML (0.358-3.740); TOTAL PROTEIN 7.8 GM/DL (6.4-8.2)
[2020-10-05 23:51] VITALS: BP 133/70
== END 2020-10-05 23:52 | disposition home or self-care (01) ==
LOC: M ED 18:09
DX: F10.129 Alcohol abuse with intoxication, unspecified (principal); F60.3 Borderline personality disorder; F32.9 Major depressive disorder, single episode, unspecified; F43.10 Post-traumatic stress disorder, unspecified; B18.2 Chronic viral hepatitis C; F19.10 Other psychoactive substance abuse, uncomplicated; Z79.899 Other long term (current) drug therapy